=== PATIENT | male | born 1945 | race Caucasian/White ===

== ENCOUNTER 2018-08-10 16:59 | Inpatient (IN) ==
--- NOTE | 2018-08-10 17:32 | Emergency Department Note ---
Disposition Clinical Impression: Atrial fibrillation with rapid ventricular response Disposition: Admitted As Inpatient Condition: Good Time of Disposition: 19:27 Arrhythmia/Palpitations HPI - General Chief Complaint: ED Arrhythmia/Palpitations Stated Complaint: Afib Time Seen by Provider: 08/10/18 17:03 Source: patient Limitations: no limitations Nursing Notes Reviewed: Yes Vital Signs Reviewed: Yes - History of Present Illness HPI Narrative: 72-year-old male presents emergency department with concern for rapid heart rate. Patient was seen for a regular appointment for medication refill and heart rate was elevated at the urgent care. They sent him to the emergency department. Patient does not have any chest pain, pressure, tightness. He has not had any simple episodes or reporting any lightheadedness or dizziness. Patient has any fevers, cough, sputum production. Patient denies any history of gastrointestinal bleeding. Denies any hematuria, melena, hematochezia, hemoptysis. - Related Data Home Medications Medication Instructions Recorded Confirmed LORazepam [Ativan] 1 mg PO HS 08/10/18 08/10/18 Lisinopril-HCTZ 20-12.5 [Prinzide 2 tab PO QAM 08/10/18 08/10/18 20-12.5] Simvastatin [Zocor] 20 mg PO DAILY 08/10/18 08/10/18 amLODIPine [Norvasc] 5 mg PO DAILY 08/10/18 08/10/18 Allergies Allergy/AdvReac Type Severity Reaction Status Date / Time No Known Allergies Allergy Verified 08/10/18 17:18 All systems ED: reviewed and negative except as stated. Review of Systems: As Per HPI Constitutional: Denies: fever Cardiovascular: Denies: chest pain, palpitations Respiratory: Denies: cough, dyspnea, hemoptysis, sputum production Gastrointestinal: Denies: abdominal pain, nausea, vomiting Genitourinary: Denies: urgency, dysuria, hematuria Musculoskeletal: Denies: back pain, neck pain Integumentary: Denies: rash Neurological: Denies: headache Past Medical History - Past Medical History Medical history: Reports: hyperlipidemia, hypertension - Social History Smoking Status: Never smoker Alcohol use: Reports: none Drug use: Reports: none Physical Exam - General Limitations: no limitations General appearance: alert, in no apparent distress - Head Head exam: normocephalic - Eye Eye exam: Present: EOMI - ENT ENT exam: mucous membranes moist - Neck Neck exam: Present: trachea midline - Chest Chest inspection: Present: normal inspection, symmetric chest wall rise - Respiratory Respiratory exam: Present: normal lung sounds bilaterally. Absent: respiratory distress, accessory muscle use - Cardiovascular Cardiovascular exam: Present: tachycardia, irregular rhythm - Abdominal Exam Abdominal exam: Present: soft, Non-Tender. Absent: distention, guarding, rebound, rigidity - Extremities Exam Extremities exam: Present: normal capillary refill - Back Exam Back exam: Present: full ROM - Neurological Exam Neurological exam: Present: alert, oriented X3, CN II-XII intact - Psychiatric Psychiatric exam: Present: normal affect, normal mood - Skin Skin exam: Present: warm, dry, intact, normal color. Absent: rash Course Vital Signs Temperature 98.6 F 08/10/18 17:15 Pulse Rate 170 08/10/18 17:15 Respiratory Rate 16 08/10/18 17:15 Blood Pressure 151/107 08/10/18 17:15 O2 Sat by Pulse Oximetry 99 08/10/18 17:15 Temperature 98.6 F 08/10/18 17:15 Pulse Rate 107 08/10/18 20:00 Respiratory Rate 18 08/10/18 20:00 Blood Pressure 134/110 08/10/18 20:00 O2 Sat by Pulse Oximetry 96 08/10/18 20:00 Oxygen Delivery Oxygen Delivery Room Air Arrhythmia/Palpitations - [facility] Narrative Medical decision making narrative: 72-year-old male presents emergency department with concern for a heart rate in the 160s. Patient in atrial fibrillation with rapid ventricular response. Patient stable and not having any symptoms with that. Patient was given oral Cardizem as well as IV push. He was also started on Cardizem drip. Patient was started on heparin and given an aspirin as well. Troponin was negative, kidney function was normal, chest x-ray was normal per radiology. This was discussed with hospitalist who agreed to accept patient for admission. Family at bedside and agreed with the plan. Patient was symptomatically stable and not in acute distress at time of admission. Chest X-Ray 08/10/18 17:21 IMPRESSION: No acute cardiopulmonary process. D/ / Daquan Keys MD / Daquan Keys MD Interpreting Provider: Daquan Keys MD Vital Signs Temperature 98.6 F 08/10/18 17:15 Pulse Rate 170 08/10/18 17:15 Respiratory Rate 16 08/10/18 17:15 Blood Pressure 151/107 08/10/18 17:15 O2 Sat by Pulse Oximetry 99 08/10/18 17:15 Temperature 98.6 F 08/10/18 17:15 Pulse Rate 118 08/10/18 18:21 Respiratory Rate 16 08/10/18 17:15 Blood Pressure 121/66 08/10/18 18:21 O2 Sat by Pulse Oximetry 94 08/10/18 18:12 Oxygen Delivery Oxygen Delivery Room Air 1930 hrs.: Patient's heart rate is dipping down in the 90s and going up into the low teens. Still asymptomatic not having blood pressure changes. Were going to go ahead and start him on heparin once his PTT is back and admission. Hospitalist as accepted. Patient's in agreement with plan. Impression is atrial fibrillation new onset with rapid ventricular response controlled with Cardizem. - Lab Data Result diagrams: 08/10/18 17:29 08/10/18 17:29 Lab Results 08/10/18 08/10/18 08/10/18 Range/Units 17:29 17:29 17:29 WBC 10.5 (4.3-11.1) K/mcL RBC 5.03 (4.19-5.50) M/mcL Hgb 15.5 (12.9-16.9) g/dL Hct 45.9 (37.5-50.1) % MCV 91.3 (83.0-100.0) fL MCH 30.8 (28.0-33.3) pg MCHC 33.8 (31.6-35.5) g/dL RDW 16.2 H (11.5-14.5) % Plt Count 275 (140-400) K/mcL MPV 12.2 (9.4-12.4) fL Immature Gran % 0.3 (0-4) % Seg Neutrophils % 56.5 % Lymphocytes % 31.9 % Monocytes % 9.9 % Eosinophils % 1.1 % Basophils % 0.3 % Neutrophils # 5.9 (1.6-8.9) K/mcL Lymphocytes # 3.3 (0.6-4.6) K/mcL Monocytes # 1.0 (0.0-1.3) K/mcL Eosinophils # 0.1 (0.0-0.6) K/mcL Basophils # 0.0 (0.0-0.2) K/mcL PT (9.4-12.1) Seconds INR Heparin Anti-Xa, Unfract (0.30-0.70) IU/mL Sodium 142 (136-145) mEq/L Potassium 3.1 L (3.5-5.1) mEq/L Chloride 106 (98-107) mEq/L Carbon Dioxide 25 (23-29) mEq/L BUN 16 (8-23) mg/dL Creatinine 0.74 (0.70-1.30) mg/dL Est GFR ( Amer) > 60 (> 60) Est GFR (Non-Af Amer) > 60 (> 60) BUN/Creatinine Ratio 22 (6-26) Glucose 106 H (70-105) mg/dL Calculated Osmolality 296 (280-300) Calcium 10.0 (8.6-10.3) mg/dL Magnesium 1.9 (1.6-2.6) mg/dL Troponin I < 0.03 (< 0.04) ng/mL TSH 0.808 (0.340-5.600) mcIU/mL 08/10/18 Range/Units 19:11 WBC (4.3-11.1) K/mcL RBC (4.19-5.50) M/mcL Hgb (12.9-16.9) g/dL Hct (37.5-50.1) % MCV (83.0-100.0) fL MCH (28.0-33.3) pg MCHC (31.6-35.5) g/dL RDW (11.5-14.5) % Plt Count (140-400) K/mcL MPV (9.4-12.4) fL Immature Gran % (0-4) % Seg Neutrophils % % Lymphocytes % % Monocytes % % Eosinophils % % Basophils % % Neutrophils # (1.6-8.9) K/mcL Lymphocytes # (0.6-4.6) K/mcL Monocytes # (0.0-1.3) K/mcL Eosinophils # (0.0-0.6) K/mcL Basophils # (0.0-0.2) K/mcL PT 14.7 H (9.4-12.1) Seconds INR 1.3 Heparin Anti-Xa, Unfract 0.02 L (0.30-0.70) IU/mL Sodium (136-145) mEq/L Potassium (3.5-5.1) mEq/L Chloride (98-107) mEq/L Carbon Dioxide (23-29) mEq/L BUN (8-23) mg/dL Creatinine (0.70-1.30) mg/dL Est GFR ( Amer) (> 60) Est GFR (Non-Af Amer) (> 60) BUN/Creatinine Ratio (6-26) Glucose (70-105) mg/dL Calculated Osmolality (280-300) Calcium (8.6-10.3) mg/dL Magnesium (1.6-2.6) mg/dL Troponin I (< 0.04) ng/mL TSH (0.340-5.600) mcIU/mL Critical Care Time Critical Care Time: Yes Total Critical Care Time: 20 Attestation: Excluding any separately billable procedures. Attestation Statement - Attestation Attestation: This documentation is done with the assistance of Dragon dictation. Despite efforts made to ensure accuracy, there may be inaccuracies in seaport planning manager or spelling and typographical errors. I examined this patient and my medical decision-making was reviewed with the Resident Physician. I agree with the documented findings, disposition and treatment plan as described except to the extent set forth below. Patient seen and evaluated by Dr. Liriano and myself, I agree with his evaluation management plan, supervised the care the patient outstay. Patient presents today with rapid heart rate. He went to get a refill of his medications which she said was on Ativan. He has not been out of them. He is on hypertensive meds and has not been out of those. And the doctor noted that he had rapid heart rate. There looks like an SVT versus A. fib with rapid ventricular response. He has never had this before. He is asymptomatic denies chest pain shortness of breath and does not notice rapid heartbeat. We did Valsalva maneuvers which did not work or start him on Cardizem. Cardiac workup and he most likely will need admission. He is in agreement with plan.
--- NOTE | 2018-08-10 17:33 | Emergency Department Note ---
Disposition Clinical Impression: Atrial fibrillation with rapid ventricular response Disposition: Admitted As Inpatient Condition: Good General Adult HPI - General Chief complaint: ED Arrhythmia/Palpitations Stated complaint: Afib Time Seen by Provider: 08/10/18 17:03 Source: patient Mode of arrival: ambulatory Limitations: no limitations Vital Signs Reviewed: Yes - History of Present Illness HPI Narrative: The patient is a 72 year old male with a history of HTN, HLD, that presents with elevated heart rate. Per patient's report, he was at his PCP office today for a general check up when his heart rate was found to be in the 160s-170s and was sent her to the ED to be evaluated. Patient denies any fever, chills, headache, dizziness, chest pain, palpitations, shortness of breath, abdominal pain, nausea, vomiting, changes in bowel habits, dysuria, hematuria, numbness, tingling, weakness, and any other associated symptoms. Patient denies any prior similar episodes. The history, physical exam, and medical decision making was performed by the medical student either while I was physically present and actively involved or I personally re-performed the exam and medical decision making. I have verified the accuracy of the medical student's documentation with regards to the history, physical exam findings, and medical decision making. Pain Scale: 0 - Related Data Home Medications Medication Instructions Recorded Confirmed LORazepam [Ativan] 1 mg PO HS 08/10/18 08/10/18 Lisinopril-HCTZ 20-12.5 [Prinzide 2 tab PO QAM 08/10/18 08/10/18 20-12.5] Simvastatin [Zocor] 20 mg PO DAILY 08/10/18 08/10/18 amLODIPine [Norvasc] 5 mg PO DAILY 08/10/18 08/10/18 Allergies Allergy/AdvReac Type Severity Reaction Status Date / Time No Known Allergies Allergy Verified 08/10/18 17:18 All systems ED: reviewed and negative except as stated. Constitutional: Denies: fever, chills Eyes: Denies: eye pain, vision change ENT ED: Denies: throat pain, congestion Cardiovascular: Denies: chest pain, palpitations, dyspnea on exertion, syncope Respiratory: Denies: cough, dyspnea Gastrointestinal: Denies: abdominal pain, nausea, vomiting, diarrhea, constipation, melena, hematochezia Genitourinary: Denies: urgency, dysuria, frequency, hematuria Musculoskeletal: Denies: back pain, neck pain Integumentary: Denies: rash, lesions Neurological: Denies: headache, weakness, numbness, paresthesias Past Medical History - Past Medical History Source: patient Medical history: Reports: hyperlipidemia, hypertension - Social History Smoking Status: Never smoker Alcohol use: Reports: none Drug use: Reports: none Physical Exam - General Limitations: no limitations General appearance: alert, in no apparent distress - Head Head exam: atraumatic, normocephalic - Eye Eye exam: Present: normal appearance. Absent: scleral icterus, conjunctival injection - ENT ENT exam: mucous membranes moist, normal external ear exam - Neck Neck exam: Present: normal inspection, full ROM, trachea midline - Chest Chest inspection: Present: normal inspection, symmetric chest wall rise - Respiratory Respiratory exam: Present: normal lung sounds bilaterally. Absent: respiratory distress, wheezes - Cardiovascular Cardiovascular exam: Present: normal rhythm, tachycardia, normal heart sounds. Absent: systolic murmur, diastolic murmur, rubs, gallop - Expanded Cardiovascular Exam Peripheral pulses: 1+: radial (R), radial (L) - Extremities Exam Extremities exam: Present: normal inspection, full ROM. Absent: pedal edema - Back Exam Back exam: Present: normal inspection, full ROM - Neurological Exam Neurological exam: Present: alert, oriented X3 - Psychiatric Psychiatric exam: Present: normal affect, normal mood - Skin Skin exam: Present: warm, dry, intact, normal color. Absent: rash, cyanosis, diaphoresis Course Vital Signs Temperature 98.6 F 08/10/18 17:15 Pulse Rate 170 08/10/18 17:15 Respiratory Rate 16 08/10/18 17:15 Blood Pressure 151/107 08/10/18 17:15 O2 Sat by Pulse Oximetry 99 08/10/18 17:15 Temperature 98.6 F 08/10/18 17:15 Pulse Rate 118 08/10/18 18:21 Respiratory Rate 16 08/10/18 17:15 Blood Pressure 121/66 08/10/18 18:21 O2 Sat by Pulse Oximetry 94 08/10/18 18:12 Oxygen Delivery Oxygen Delivery Room Air Medical Decision Making - Lab Data Result diagrams: 08/10/18 17:29 08/10/18 17:29 Lab Results 08/10/18 08/10/18 08/10/18 Range/Units 17:29 17:29 17:29 WBC 10.5 (4.3-11.1) K/mcL RBC 5.03 (4.19-5.50) M/mcL Hgb 15.5 (12.9-16.9) g/dL Hct 45.9 (37.5-50.1) % MCV 91.3 (83.0-100.0) fL MCH 30.8 (28.0-33.3) pg MCHC 33.8 (31.6-35.5) g/dL RDW 16.2 H (11.5-14.5) % Plt Count 275 (140-400) K/mcL MPV 12.2 (9.4-12.4) fL Immature Gran % 0.3 (0-4) % Seg Neutrophils % 56.5 % Lymphocytes % 31.9 % Monocytes % 9.9 % Eosinophils % 1.1 % Basophils % 0.3 % Neutrophils # 5.9 (1.6-8.9) K/mcL Lymphocytes # 3.3 (0.6-4.6) K/mcL Monocytes # 1.0 (0.0-1.3) K/mcL Eosinophils # 0.1 (0.0-0.6) K/mcL Basophils # 0.0 (0.0-0.2) K/mcL Sodium 142 (136-145) mEq/L Potassium 3.1 L (3.5-5.1) mEq/L Chloride 106 (98-107) mEq/L Carbon Dioxide 25 (23-29) mEq/L BUN 16 (8-23) mg/dL Creatinine 0.74 (0.70-1.30) mg/dL Est GFR ( Amer) > 60 (> 60) Est GFR (Non-Af Amer) > 60 (> 60) BUN/Creatinine Ratio 22 (6-26) Glucose 106 H (70-105) mg/dL Calculated Osmolality 296 (280-300) Calcium 10.0 (8.6-10.3) mg/dL Magnesium 1.9 (1.6-2.6) mg/dL Troponin I < 0.03 (< 0.04) ng/mL TSH 0.808 (0.340-5.600) mcIU/mL
[2018-08-10 17:44] LABS: Basophils % 0.3 %; Eosinophils # 0.1 K/mcL (0.0-0.6); Eosinophils % 1.1 %; Hematocrit 45.9 % (37.5-50.1); Hemoglobin 15.5 g/dL (12.9-16.9); Immature Granulocytes % 0.3 % (0-4); Lymphocytes # 3.3 K/mcL (0.6-4.6); Lymphocytes % 31.9 %; Mean Corpuscular HGB Conc 33.8 g/dL (31.6-35.5); Mean Corpuscular Hemoglobin 30.8 pg (28.0-33.3); Mean Corpuscular Volume 91.3 fL (83.0-100.0); Mean Platelet Volume 12.2 fL (9.4-12.4); Monocytes % 9.9 %; Neutrophils # 5.9 K/mcL (1.6-8.9); Platelet Count 275 K/mcL (140-400); Red Blood Count 5.03 M/mcL (4.19-5.50); Red Cell Distribution Width 16.2 % (11.5-14.5); Segmented Neutrophils % 56.5 %
[2018-08-10 18:13] LABS: Troponin I < 0.03 ng/mL (< 0.04)
[2018-08-10 18:18] LABS: BUN/Creatinine Ratio 22 (6-26); Blood Urea Nitrogen 16 mg/dL (8-23); Carbon Dioxide 25 mEq/L (23-29); Chloride 106 mEq/L (98-107); Glucose 106 mg/dL (70-105); Osmolality,Calculated 296 (280-300); Potassium 3.1 mEq/L (3.5-5.1); Sodium 142 mEq/L (136-145); eGFR For Non-African Americans > 60 (> 60)
[2018-08-10 18:25] LABS: Thyroid Stimulating Hormone 0.808 mcIU/mL (0.340-5.600)
[2018-08-10] MEDS ORDERED: *HR* Heparin 5,000 UNIT/ML VIAL IVP PRN ×2 (18:54)
[2018-08-10] MEDS ORDERED: *HR* Heparin 5,000 UNIT/ML VIAL IVP ONE (18:54)
[2018-08-10 19:44] LABS: Heparin anti-factor XA UFH 0.02 IU/mL (0.30-0.70)
[2018-08-10 19:45] LABS: INR 1.3; Prothrombin Time 14.7 Seconds (9.4-12.1)
[2018-08-10] MEDS: Heparin 25,000 UNIT/500 ML D5W 25,000 UNIT/500 ML BAG IVC SCH (20:18)
[2018-08-10] MEDS ORDERED: Naloxone 0.4 MG/ML INJ IVP PRN (21:00)
--- NOTE | 2018-08-10 21:33 | Internal Med History&Physical ---
Addendum entered and electronically signed by Adrian Patricia MD 08/11/18 21:14: I saw and evaluated the patient. I reviewed the residents note, performed my own physical examination and agree with findings and plan as documented in the residents note. Patient seen and examined on 08/11/18. Patient presented with new onset atrial fibrillation. Started on diltiazem in ER, as well as heparin drip. He denies complaints, no chest pain. Will continue to titrate for control. Cardiology consult in the AM. Original Note: Date of Encounter: 08/10/18 Time of Encounter: 21:00 Internal Medicine - H&P: HPI Chief complaint: rapid heart rate History of present illness: Mr. Sanchez is a 72 year old male with PMH of hypertension and hyperlipidemia presents to the emergency department for rapid heart rate discovered while at a routine appointment with his PCP. While at his PCP appointment his heart rate was reported to be 160s-170s bpm; he received an EKG showing afib with RVR and was sent to the ED. the patient has no complaints, states he feels perfectly fine. Patient reports was replacing windows on his home yesterday and although he admits it was hard work he had no issues during this project or afterwards. He denies fevers, chills, chest pain or pressure, sensation of heart racing, heart palpitations, dyspnea, lightheadedness, headache, diaphoresis, abdominal pain, nausea, vomiting, change in bowel movements, or difficulty urinating. Patient denies any personal history of TN, but states his father of an TN at age 60. The patient has no history of tobacco use, states he was exposed to a lot of secondhand smoke as a child. He has 1 or 2 beers on rare occasions. Denies marijuana other drug use. ED course: On arrival he was asymptomatic, afebrile, HR 170, RR 16, BP 151/107, and SPO2 99%. His lab work was notable for potassium 3.1, negative troponin, and TSH within normal limits. CXR negative for any acute cardiopulmonary processes. EKG showed Afib with RVR, HR 120 bpm, axis. Potassium replaced with 40 mEq KCl orally. For his Afib with RVR he was given diltiazem 60 mg PO, diltiazem 20 mg IVP, placed on a diltiazem drip, and started on a heparin drip. He is admitted to the hospitalist service for further evaluation and care of new onset Afib with RVR. Past Med Surg Social Fam HX - Past Medical History Medical history: hyperlipidemia, hypertension - Social History Smoking Status: Never smoker Alcohol use: none Drug use: none Internal Medicine - H&P: Meds LORazepam [Ativan] 1 mg PO HS 08/10/18 [History] Lisinopril-HCTZ 20-12.5 [Prinzide 20-12.5] 2 tab PO QAM 08/10/18 [History] Simvastatin [Zocor] 20 mg PO DAILY 08/10/18 [History] amLODIPine [Norvasc] 5 mg PO DAILY 08/10/18 [History] Allergy/AdvReac Type Severity Reaction Status Date / Time No Known Allergies Allergy Verified 08/10/18 17:18 All Systems PM: A 10-system review of systems was performed and is negative for pertinent findings except as documented above in the HPI. - Constitutional Constitutional: as per HPI - Cardiovascular Cardiovascular ROS IM: as per HPI, edema (bilateral, lower extremity, chronic) - Respiratory Respiratory: as per HPI - Gastrointestinal Gastrointestinal: as per HPI - Genitourinary Genitourinary ROS male: as per HPI - Neurological Neurological ROS: as per HPI - Constitutional Vitals: Temp Pulse Resp BP Pulse Ox 98.0 F 148 18 136/91 96 08/10/18 20:57 08/10/18 20:57 08/10/18 20:57 08/10/18 20:57 08/10/18 20:57 Exam: General: vital signs noted, no acute distress, non-toxic appearance, AAO x3 Head: normocephalic, atraumatic Eyes: EOMI, PERRL, sclera anicteric ENT: moist/dry mucous membranes Neck: supple, trachea midline, no lymphadenopathy Cardio: tachycardic; no murmurs, gallops, rubs; + S1/S2 Chest: symmetric chest rise Pulm: CTAB; no wheezes, rhonchi, or rales; no respiratory distress Abd: soft, nontender, nondistended, normal bowel sounds Neuro: CN II-XII grossly intact; no focal deficits, speech deficit, facial droop, moves all extremities spontaneously; mentation intact Ext: bilateral lower extremity edema L > R with 2+ pitting edema; 2+/4 radial pulses equal bilaterally, no gross deformities Psych: normal mood and affect, cooperative, answers questions appropriately, doesnt appear anxious or agitated Skin: warm, dry, intact Internal Med - H&P Results - Labs CBC & Chem 7: 08/11/18 01:48 08/11/18 01:48 - Assessment and plan (1) Atrial fibrillation with rapid ventricular response Current Visit: Yes Status: Acute Assessment and plan: New onset, uncertain etiology HR prior to arrival reportedly 160s to 170s bpm EKG shows Afib with RVR, to ischemic changes identified Troponin negative CXR shows no acute cardiopulmonary processes - Continuous manager cardiac - Continue diltiazem gtt - Continue heparin gtt - Hold amlodipine morning dose - Echocardiogram ordered - Cardiology consult (2) Hypertension Current Visit: Yes Status: Chronic Assessment and plan: Home meds include amlodipine and lisinopril-HCTZ - Hold amlodipine morning dose - Continue lisinopril-HCTZ Qualifiers: Hypertension type: essential hypertension Qualified Code(s): I10 - Essential (primary) hypertension (3) Bilateral lower extremity edema Current Visit: Yes Status: Chronic Assessment and plan: Chronic, stable May be d/t amlodipine use - No lasix at this time d/t his hypokalemia - Consider replacing amlodipine with different anti-hypertensive (4) Hypokalemia Current Visit: Yes Status: Acute Assessment and plan: Potassium on admission 3.1 Magnesium 1.9 Received 40 mEq KCl PO and 2 gm magnesium IV in emergency department Do not give lasix for BLE edema at this time - Give additional 40 mEq KCl now - Recheck metabolic panel in morning - If potassium improved on morning metabolic panel, consider lasix for BLE edema (5) Hyperlipidemia Current Visit: Yes Status: Chronic Assessment and plan: Continue home med simvastatin - Check lipid panel to help determine ASCVD risk Qualifiers: Hyperlipidemia type: mixed hyperlipidemia Qualified Code(s): E78.2 - Mixed hyperlipidemia (6) Prediabetes Current Visit: Yes Status: Chronic Assessment and plan: Per review of [facility] records, HgbA1c ordered but never completed - HgbA1c ordered to help determine ASCVD risk (7) DVT prophylaxis Current Visit: Yes Status: Acute Assessment and plan: Heparin gtt - Time Spent With Patient Total time spent is greater than 50% in coordination of care (as documented) at patient's floor/unit and/or counseling patient:
[2018-08-11] MEDS ORDERED: *HR* LORazepam 0.5 MG TABLET ONE (04:41)
[2018-08-11] MEDS ORDERED: amLODIPine 5 MG TABLET PO SCH (09:00)
[2018-08-11 10:48] LABS: Heparin anti-factor XA UFH 0.51 IU/mL (0.30-0.70)
[2018-08-11 11:41] LABS: Basophils # 0.1 K/mcL (0.0-0.2); Basophils % 0.4 %; Eosinophils # 0.1 K/mcL (0.0-0.6); Hematocrit 40.1 % (37.5-50.1); Hemoglobin 13.6 g/dL (12.9-16.9); Immature Granulocytes % 0.6 % (0-4); Lymphocytes # 3.9 K/mcL (0.6-4.6); Mean Corpuscular HGB Conc 33.9 g/dL (31.6-35.5); Mean Corpuscular Hemoglobin 31.3 pg (28.0-33.3); Mean Corpuscular Volume 92.2 fL (83.0-100.0); Mean Platelet Volume 13.1 fL (9.4-12.4); Monocytes # 1.3 K/mcL (0.0-1.3); Monocytes % 10.1 %; Neutrophils # 7.2 K/mcL (1.6-8.9); Platelet Count 241 K/mcL (140-400); Red Blood Count 4.35 M/mcL (4.19-5.50); Red Cell Distribution Width 16.7 % (11.5-14.5); Segmented Neutrophils % 56.9 %
[2018-08-11] MEDS ORDERED: Melatonin 3 MG TABLET PO PRN (11:59)
[2018-08-11] MEDS: Lisinopril-HCTZ 20-12.5mg TABLET PO SCH (12:11)
[2018-08-11 12:23] LABS: BUN/Creatinine Ratio 18 (6-26); Blood Urea Nitrogen 14 mg/dL (8-23); Calcium 9.4 mg/dL (8.6-10.3); Carbon Dioxide 22 mEq/L (23-29); Chloride 108 mEq/L (98-107); Chol/HDL Ratio 2.7 (0-4.9); Glucose 181 mg/dL (70-105); Osmolality,Calculated 297 (280-300); Potassium 3.2 mEq/L (3.5-5.1); Sodium 141 mEq/L (136-145); eGFR For Non-African Americans > 60 (> 60)
[2018-08-11 12:39] LABS: INR 1.4; Prothrombin Time 15.9 Seconds (9.4-12.1)
--- NOTE | 2018-08-11 12:46 | Internal Med Progress Note ---
Hospitalist Progress Note - Encounter Date of Encounter: 08/11/18 Time of Encounter: 09:00 - Subjective Interval History: 72 M who is admitted and being managed for afib with RVR Currently on diltiazem and heparin infusions,asymptomatic ECHO and Cardio eval pending Labs reviewed: Potassium and Mag replaced - Exam Vitals: Temp Pulse Resp BP Pulse Ox 99.0 F 119 16 121/56 95 08/10/18 23:35 08/10/18 23:35 08/10/18 23:35 08/10/18 23:35 08/11/18 00:04 Exam: GEN: Patient is alert, oriented, no acute distress Head: atraumatic, normocephalic Eye: normal appearance, PERRL, no scleral icterus, no conjunctival injection ENT: mucous membranes moist, normal external ear exam Neck: normal inspection, trachea midline, full ROM, NO JVD Respiratory: CTAB, no added sounds Cardiovascular: S1, S2, irregular rate, tachy, HR 100-110, no m/g/r Abdomen: Soft, not tender, no palpably enlarged organs, BS present in all quadrants MSK: Spontaneously moving all extremities. no edema, no calf tenderness Skin: warm, dry, intact, no rash Neuro: AAOX3, moves all extremities, no focal deficits Psych: Patient's affect is normal - Assessment and Plan (1) Atrial fibrillation with rapid ventricular response Current Visit: Yes Status: Acute Assessment and Plan: New onset, uncertain etiology HR prior to arrival reportedly 160s to 170s bpm EKG shows Afib with RVR, to ischemic changes identified Troponin negative TSH WNL CXR shows no acute cardiopulmonary processes Follow ECHO reports Start po metoprolol wean off IV cardizem, cardio eval pending CHADs score of 1 for HTN Continue ASA only, if ECHO shows no CHF (2) DVT prophylaxis Current Visit: Yes Status: Acute Assessment and Plan: Heparin gtt (3) Hyperlipidemia Current Visit: Yes Status: Chronic Assessment and Plan: Continue home med simvastatin (4) Hypertension Current Visit: Yes Status: Chronic Assessment and Plan: Continue Lisinopril-HCTZ Monitor BP closely (5) Bilateral lower extremity edema Current Visit: Yes Status: Acute Assessment and Plan: Chronic, stable May be d/t amlodipine use Follow ECHO report (6) Hypokalemia Current Visit: Yes Status: Acute Assessment and Plan: Replaced po, rpt with mrn labs Mag replaced (7) Prediabetes Current Visit: Yes Status: Chronic Assessment and Plan: Per review of [facility] records Follow A1C - Time Spent with Patient Total time spent is greater than 50% in coordination of care (as documented) at patient's floor/unit and/or counseling patient: Plan of Care Discussed with: patient Internal Medicine: Result - Labs CBC & Chem 7: 08/11/18 01:48 08/11/18 01:48 Labs: Short CBC 08/10/18 08/11/18 Range/Units 17:29 01:48 WBC 10.5 12.6 H (4.3-11.1) K/mcL Hgb 15.5 13.6 D (12.9-16.9) g/dL Hct 45.9 40.1 (37.5-50.1) % Plt Count 275 241 (140-400) K/mcL Neutrophils # 5.9 7.2 (1.6-8.9) K/mcL BMP 08/10/18 08/11/18 17:29 01:48 Sodium 142 141 Potassium 3.1 L 3.2 L Chloride 106 108 H Carbon Dioxide 25 22 L BUN 16 14 Creatinine 0.74 0.78 Glucose 106 H 181 H Calcium 10.0 9.4 Cardiac Enzymes 08/10/18 Range/Units 17:29 Troponin I < 0.03 (< 0.04) ng/mL - ABG Interpretation ABG results: PT/INR, D-dimer PT 15.9 Seconds (9.4-12.1) H 08/11/18 01:48 - Impressions Impressions Chest X-Ray 08/10/18 17:21 IMPRESSION: No acute cardiopulmonary process. D/ / Daquan Keys MD / Daquan Keys MD Interpreting Provider: Daquan Keys MD Consult Discharge Plan - Plan Referrals: Sushma Han, SE[employer]ER [Primary Care Provider] - (3) Hyperlipidemia Qualifiers: Hyperlipidemia type: mixed hyperlipidemia Qualified Code(s): E78.2 - Mixed hyperlipidemia (4) Hypertension Qualifiers: Hypertension type: essential hypertension Qualified Code(s): I10 - Essential (primary) hypertension
--- NOTE | 2018-08-11 13:07 | Cardiology Consult Note ---
<Jacque Mathew M - Last Filed: 08/11/18 15:45> Date of Encounter: 08/11/18 Time of Encounter: 12:45 Assessment and Plan (1) Atrial fibrillation with rapid ventricular response Current Visit: Yes Status: Acute New onset. Unknown duration. Heart rate ranging form 110-140s. Asymptomatic. EKG with Afib with RVR, no signs of acute ischemia. Torponin <0.03. TSH WNL. Plan for rate control. Continue cardizem drip until patient is better rate controlled. Try to wean tomorrow. Started on metoprolol 25mg PO BID, continue. Await echocardiogram results. CHADsVASC 2 (age and hypertension). Recommend anticoagulation. Continue heparin for now and likely switch to oral anticoagulant on discharge. (2) Hypertension Current Visit: Yes Status: Chronic Blood pressures controlled. Continue lisinopril-HCTZ Qualifiers: Hypertension type: essential hypertension Qualified Code(s): I10 - Essential (primary) hypertension (3) Bilateral lower extremity edema Current Visit: Yes Status: Chronic Chronic per patient. Await echo results. Resume home medications on discharge. (4) Hypokalemia Current Visit: Yes Status: Acute Replace. Management per medicine team. (5) Hyperlipidemia Current Visit: Yes Status: Chronic Continue statin. Qualifiers: Hyperlipidemia type: mixed hyperlipidemia Qualified Code(s): E78.2 - Mixed hyperlipidemia Discussion w patient/family: The assessment and plan as outlined above was discussed with the patient and/or family members who expressed understanding and agreement. All questions were answered. Thank you for involving us in the care of your patient. Please call with any questions. History of Present Illness Consult date: 08/10/18 Requesting physician: Carlyn Douglas Consult reason: New Afib with RVR Chief complaint: high heart rate History of present illness: Mr. Sanchez is a 72 year old male with past medical history including hypertension and hyperlipidemia who presents with a chief complaint of high heart rate. Patient states he followed up with his PCP yesterday afternoon for a regular scheduled appointment. He states the nurse documented the heart rate as 82. When the physician did her physical exam she noted his heart rate to be fast. An ekg was obtained and patient was noted to be in atrial fibrillation with heart rate 160s. Patient denies a history of atrial fibrillation. He denies chest pain, palpitations, skipped heart beats, fatigue, shortness of breath, nausea, history of thyroid disease, family history of atrial fibrillation, history of smoking, alcohol, or illicit drug use. Patient does note he chronically has lower ex tremity edema but no new swelling. PCP sent him to the ER for further management. He received Cardizem PO, IV and started on a drip. Heparin and aspirin was also started. Troponin <0.03. CXR was obtained and negative for acute process or cardiomegaly. Overnight, patient's heart rate has improved to 110-130s on diltiazem drip. Patient seen and examined today. Denies any new complaints. Denies chest pain, palpitations, shortness of breath, lightheadedness. He states he has never had a stress test, echocardiogram, or cardiac catheterization in the past. Past Med Surg Social Fam HX - Past Medical History Medical history: hyperlipidemia, hypertension Psychiatric history: no psych history - Past Surgical History Surgical History: splenectomy Additional surgical history: 1980 Spleen completely removed - Social History Smoking Status: Never smoker Smokeless Tobacco Status: No Alcohol use: none Drug use: none - Family History Brother Age at : 64 Cause of : Lung cancer Hx Family Respiratory Disorders: Yes Hx Family Cancer: Yes (Lung cancer) Hx Family Psychosocial Disorders: Yes (alcoholism) Father Living Status: Age at : 59 Cause of : "Massive heart attack" Hx Family Cardiac Disorders: Yes Mother Age at : 59 Cause of : "Brain cancer" Hx Family Cancer: Yes ("Brain cancer") Hx Family Neurologic Disorders: Yes Medications and Allergies LORazepam [Ativan] 1 mg PO HS 08/10/18 [History] RX: Lisinopril-HCTZ 20-12.5 [Prinzide 20-12.5] 2 tab PO QAM 08/10/18 [History] Simvastatin [Zocor] 20 mg PO DAILY 08/10/18 [History] amLODIPine [Norvasc] 5 mg PO DAILY 08/10/18 [History] Allergy/AdvReac Type Severity Reaction Status Date / Time No Known Allergies Allergy Verified 08/10/18 17:18 All Systems Review: The remainder of the systems were reviewed and are negative - Constitutional Constitutional: no fatigue, no fever(s), no headache(s), no lethargy, no weakn ess - EENT Eyes: no blurred vision, no loss of vision Nose, mouth and throat: no dysphagia, no sore throat - Cardiovascular Cardiovascular: irregular heart rhythm, leg edema, rapid heart rate, no chest pain at rest, no chest pain with exertion, no dyspnea on exertion, no lightheadedness, no palpitations - Respiratory Respiratory: no cough, no dyspnea - Gastrointestinal Gastrointestinal: no abdominal pain - Genitourinary Genitourinary: no dysuria - Musculoskeletal Musculoskeletal: no muscle weakness - Integumentary Integumentary: no rash - Neurological Neurological: no dizziness, no numbness, no tingling - Hematological/Lymphatic Hematologic/Lymphatic: no easy bleeding Physical Examination General: Conversant, No Apparent Distress HEENT: Atraumatic, Normocephaly, Mucus Membranes Moist Neck: No JVD Cardiac: No Murmur, Other (irregular rate and rhythm.) Lungs: Normal Breath Sounds, No Wheeze, Rales, Rhonchi Neuro: Alert and responsive, No focal deficits noted Abdomen: Soft, Non-Tender Skin: No rashes noted on visualized skin Musculoskeletal: No Chest Wall Tenderness Extremities: Other (1+ pitting edema bilateral lower extremities up to knee.) Results 08/11/18 01:48 08/11/18 01:48 Lab Results 08/10/18 08/10/18 08/10/18 17:29 17:29 17:29 WBC 10.5 Hgb 15.5 Hct 45.9 Plt Count 275 INR APTT Sodium 142 Potassium 3.1 L Chloride 106 Carbon Dioxide 25 BUN 16 Creatinine 0.74 Glucose 106 H Calcium 10.0 Magnesium 1.9 Troponin I < 0.03 TSH 0.808 08/10/18 08/11/18 08/11/18 19:11 01:48 01:48 WBC 12.6 H Hgb 13.6 D Hct 40.1 Plt Count 241 INR 1.3 APTT Sodium 141 Potassium 3.2 L Chloride 108 H Carbon Dioxide 22 L BUN 14 Creatinine 0.78 Glucose 181 H Calcium 9.4 Magnesium Troponin I TSH 08/11/18 01:48 WBC Hgb Hct Plt Count INR 1.4 APTT TNP Sodium Potassium Chloride Carbon Dioxide BUN Creatinine Glucose Calcium Magnesium Troponin I TSH - Imaging and Cardiology Chest Xray: report reviewed Echo: pending Consult Discharge Plan - Plan Referrals: Sushma Han, SHELL WORKER [Primary Care Provider] - <Fam Banda - Last Filed: 08/12/18 09:33> - Attending Attestation I examined this patient and my medical decision-making was reviewed with the [facility] Physician. I agree with the documented findings, disposition and treatment plan as described except to the extent set forth below. AF of unknown duration. Asymptomatic. Rate control and anticoagulation acutely, consider cardioversion down the road. Assessment and Plan Discussion w patient/family: The assessment and plan as outlined above was discussed with the patient and/or family members who expressed understanding and agreement. All questions were answered. Thank you for involving us in the care of your patient. Please call w ith any questions. History of Present Illness History of present illness: Mr. Sanchez is a 72 year old male All Systems Review: The remainder of the systems were reviewed and are negative Physical Examination Vital Signs, Last 4 Hours Temp Pulse Resp BP Pulse Ox 08/12/18 07:26 97.9 F 99 16 103/78 91 Results 08/12/18 04:03 08/12/18 04:03 Lab Results 08/11/18 08/11/18 08/11/18 01:48 01:48 01:48 WBC 12.6 H Hgb 13.6 D Hct 40.1 Plt Count 241 INR 1.4 APTT TNP Sodium 141 Potassium 3.2 L Chloride 108 H Carbon Dioxide 22 L BUN 14 Creatinine 0.78 Glucose 181 H Calcium 9.4 Magnesium 08/12/18 08/12/18 04:03 04:03 WBC 12.8 H Hgb 13.2 Hct 39.2 Plt Count 235 INR APTT Sodium 140 Potassium 3.5 Chloride 105 Carbon Dioxide 27 BUN 21 Creatinine 1.11 Glucose 140 H Calcium 8.7 Magnesium 2.2
--- NOTE | 2018-08-11 13:33 | Electrocardiograph Report ---
[place] [id number] Test Date: 2018-08-10 Pat Name: Kulwant Sanchez Department: EXAMC1 Room: 2A24 Gender: M Optical Effects Line Up Person: : 1945 Requested By: Aman Boyd Order Number: [id number] Reading MD: Alicia Husain Measurements Intervals [place] Rate: 120 P: [place]: QRS: -26 QRSD: 104 T: 104 QT: 384 QTc: 543 Interpretive Statements Atrial fibrillation Borderline left axis deviation Abnormal R-wave progression, early transition Borderline repolarization abnormality Electronically Signed On 08-11-2018 13:31:22 EDT by Alicia Husain
--- NOTE | 2018-08-11 13:47 | Electrocardiograph Report ---
[address] [address] Test Date: 2018-08-10 Pat Name: Kulwant Sanchez Department: EXAMC1 Room: 2A24 Gender: M Digestion Operator: : 1945 Requested By: Wilmer Franco Order Number: [id number] Reading MD: Alicia Husain Measurements Intervals [place] Rate: 170 P: -75 IN: 101 QRS: -28 QRSD: 103 T: 91 QT: 311 QTc: 523 Interpretive Statements Supraventricular tachycardia Borderline left axis deviation Abnormal R-wave progression, early transition Repolarization abnormality, prob rate related Electronically Signed On 08-11-2018 13:45:25 EDT by Alicia Husain
[2018-08-11] MEDS ORDERED: *HR* LORazepam 0.5 MG TABLET PO ONE (14:10)
[2018-08-11] MEDS ORDERED: Lisinopril-HCTZ 20-12.5mg TABLET PO ONE (14:10)
[2018-08-11 14:21] LABS: Estimated Average Glucose 143 mg/dl; Hemoglobin A1C 6.6 %
[2018-08-11] MEDS ORDERED: Perflutren Lipid Microsphere 1.3 ML in 0.9 % Sodium Chloride 8.7 ML IVP ONE (16:22)
[2018-08-11] MEDS: Heparin 25,000 UNIT/500 ML D5W 25,000 UNIT/500 ML BAG IVC SCH (17:04)
[2018-08-11] MEDS ORDERED: Ondansetron 4 MG/2 ML VIAL IVP PRN (19:41)
[2018-08-11] MEDS ORDERED: *HR* LORazepam 1 MG TABLET PO SCH (21:00)
[2018-08-12 04:35] LABS: Basophils % 0.1 %; Eosinophils % 0.1 %; Hematocrit 39.2 % (37.5-50.1); Immature Granulocytes % 0.3 % (0-4); Lymphocytes # 3.8 K/mcL (0.6-4.6); Lymphocytes % 29.6 %; Mean Corpuscular HGB Conc 33.7 g/dL (31.6-35.5); Mean Corpuscular Hemoglobin 30.9 pg (28.0-33.3); Mean Corpuscular Volume 91.8 fL (83.0-100.0); Mean Platelet Volume 12.6 fL (9.4-12.4); Neutrophils # 7.9 K/mcL (1.6-8.9); Platelet Count 235 K/mcL (140-400); Red Blood Count 4.27 M/mcL (4.19-5.50); Red Cell Distribution Width 16.5 % (11.5-14.5); Segmented Neutrophils % 61.9 %
[2018-08-12 04:39] LABS: Hemoglobin 13.2 g/dL (12.9-16.9)
[2018-08-12 04:55] LABS: BUN/Creatinine Ratio 19 (6-26); Blood Urea Nitrogen 21 mg/dL (8-23); Calcium 8.7 mg/dL (8.6-10.3); Carbon Dioxide 27 mEq/L (23-29); Chloride 105 mEq/L (98-107); Glucose 140 mg/dL (70-105); Magnesium 2.2 mg/dL (1.6-2.6); Osmolality,Calculated 295 (280-300); Potassium 3.5 mEq/L (3.5-5.1); Sodium 140 mEq/L (136-145); eGFR For Non-African Americans > 60 (> 60)
--- NOTE | 2018-08-12 08:57 | Internal Med Progress Note ---
Hospitalist Progress Note - Encounter Date of Encounter: 08/12/18 Time of Encounter: 08:55 - Subjective Interval History: 72 M who is admitted and being managed for afib with RVR He has no new complains and was never symptomatic, except for chronic pedal edema ECHO from 08/11 noted for EF 45%, multiple WMA as well as biatrial dilatation and moderate MR/MA. I assume he will be going for cath and has placed NPO HR remains uncontrolled, off cardizem drip, will increase metoprolol - Exam Vitals: Temp Pulse Resp BP Pulse Ox 97.9 F 99 16 103/78 91 08/12/18 07:26 08/12/18 07:26 08/12/18 07:26 08/12/18 07:26 08/12/18 07:26 Exam: GEN: Patient is alert, oriented, no acute distress Head: atraumatic, normocephalic Eye: normal appearance, PERRL, no scleral icterus, no conjunctival injection ENT: mucous membranes moist, normal external ear exam Neck: normal inspection, trachea midline, full ROM, NO JVD Respiratory: CTAB, no added sounds Cardiovascular: S1, S2, irregular rate, tachy, HR 100-110, no m/g/r Abdomen: Soft, not tender, no palpably enlarged organs, BS present in all quadrants MSK: Spontaneously moving all extremities.pedal edema, no calf tenderness Skin: warm, dry, intact, no rash Neuro: AAOX3, moves all extremities, no focal deficits Psych: Patient's affect is normal - Assessment and Plan (1) Atrial fibrillation with rapid ventricular response Current Visit: Yes Status: Acute Assessment and Plan: New onset, uncertain etiology HR prior to arrival reportedly 160s to 170s bpm EKG shows Afib with RVR, to ischemic changes identified Troponin negative TSH WNL CXR shows no acute cardiopulmonary processes ECHo shows multiple WMA and EF 45%-Card follow up pending Continue po metoprolol, increased to 50bid Continue heparin with goal to switch to po med a.m Continue other care, Chem WNL (2) DVT prophylaxis Current Visit: Yes Status: Acute Assessment and Plan: Heparin gtt (3) Hyperlipidemia Current Visit: Yes Status: Chronic Assessment and Plan: Continue home med simvastatin isk (4) Hypertension Current Visit: Yes Status: Chronic Assessment and Plan: Continue BB and Lisinopril-HCTZ (5) Bilateral lower extremity edema Current Visit: Yes Status: Chronic Assessment and Plan: Chronic, stable Likley due to CHF, patient is on diuretics (6) Hypokalemia Current Visit: Yes Status: Acute Assessment and Plan: resolved , now WNL (7) Prediabetes Current Visit: Yes Status: Chronic Assessment and Plan: A1C 6.6, continue lifestyle modification - Time Spent with Patient Total time spent is greater than 50% in coordination of care (as documented) at patient's floor/unit and/or counseling patient: Internal Medicine: Result - Labs CBC & Chem 7: 08/12/18 04:03 08/12/18 04:03 Labs: Short CBC 08/11/18 08/12/18 Range/Units 01:48 04:03 WBC 12.6 H 12.8 H (4.3-11.1) K/mcL Hgb 13.6 D 13.2 (12.9-16.9) g/dL Hct 40.1 39.2 (37.5-50.1) % Plt Count 241 235 (140-400) K/mcL Neutrophils # 7.2 7.9 (1.6-8.9) K/mcL BMP 08/11/18 08/12/18 01:48 04:03 Sodium 141 140 Potassium 3.2 L 3.5 Chloride 108 H 105 Carbon Dioxide 22 L 27 BUN 14 21 Creatinine 0.78 1.11 Glucose 181 H 140 H Calcium 9.4 8.7 - ABG Interpretation ABG results: PT/INR, D-dimer PT 15.9 Seconds (9.4-12.1) H 08/11/18 01:48 - Impressions Impressions Echocardiogram 08/10/18 21:02 Impressions: LVEF 45%. Mild global left ventricular systolic dysfunction. Moderate left ventricular diastolic dysfunction. Mild concentric left ventricular hypertrophy. Mildly dilated right ventricle with mild hypokinesis. Moderate bi-atrial dilatation. Moderate mitral regurgitation. Moderate tricuspid regurgitation. Mild pulmonary hypertension. Consult Discharge Plan - Plan Referrals: Sushma Han, [facility]ATH[employer]ER [Primary Care Provider] - (3) Hyperlipidemia Qualifiers: Hyperlipidemia type: mixed hyperlipidemia Qualified Code(s): E78.2 - Mixed hyperlipidemia (4) Hypertension Qualifiers: Hypertension type: essential hypertension Qualified Code(s): I10 - Essential (primary) hypertension
[2018-08-12] MEDS: Lisinopril-HCTZ 20-12.5mg TABLET PO SCH (09:36)
--- NOTE | 2018-08-12 09:44 | Cardiology Progress Note ---
Addendum entered and electronically signed by Fam Banda MD 08/12/18 13:37: I examined this patient and my medical decision-making was reviewed with the Resident Physician. I agree with the documented findings, disposition and treatment plan as described except to the extent set forth below. Continue rate control and anticoagulation. See below. Original Note: <Jacque Mathew Lani - Last Filed: 08/12/18 10:21> Date of Encounter: 08/12/18 Time of Encounter: 08:15 Assessment and Plan (1) Atrial fibrillation with rapid ventricular response Current Visit: Yes Status: Acute New onset. Unknown duration and etiology. Patient remains asymptomatic. Cardizem drip discontinued overnight secondary to hypotension. Heart rate back up to 120s-130s and irregular. No acute ischemia on EKG Troponin <0.03. TSH WNL. Echocardiogram 08/11/18 with LVEF 45%, mild global LV systolic dysfunction, moderate LV diastolic dysfunction, mildly dilated RV with hypokinesis, biatrial dilation, moderate mitral and tricuspid regurgitation, mild pulmonary hypertension. Continue to rate control. Resume Cardizem drip at 10mg/hr. If patient becomes hypotensive, give IV fluids and titrate the Cardizem to lower dose. Possible transition to PO medications tomorrow if rate is better controlled. Metoprolol was increased to 50mg PO BID, continue. CHADsVASC 2 (age and hypertension). Continue with heparin. Recommend transition to oral anticoagulant such as Xarelto or Eliquis. No plans for cardiac cath at this time. (2) Congestive heart failure Current Visit: Yes Status: Acute Etiology unknown.Possible due to unknown duration of atrial fibrillation with RVR. Echocardiogram results reviewed. EF 45%. Plan as above, rate control for atrial fibrillation. On metoprolol and lisinopril/HCTZ. 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 Qualifiers: Hypertension type: essential hypertension Qualified Code(s): I10 - Essential (primary) hypertension (4) Bilateral lower extremity edema Current Visit: Yes Status: Chronic Chronic per patient. Echo results as above. Resume home medications on discharge. (5) Hyperlipidemia Current Visit: Yes Status: Chronic Continue with statin. Qualifiers: Hyperlipidemia type: mixed hyperlipidemia Qualified Code(s): E78.2 - Mixed hyperlipidemia Discussion w patient/family: The assessment and plan as outlined above was discussed with the patient and/or family members who expressed understanding and agreement. All questions were answered. Thank you for involving us in the care of your patient. Please call with any questions. Subjective Principal diagnosis: atrial fibrillation with RVR Interval history: Patient states he is doing well. Denies palpitations, chest pain, shortness of breath, lightheadedness. No acute complaints. Heart rate improved yesterday evening. Patient hypotensive overnight and cardizem was discontinued. Heart rate is now back up to 120-130s while evaluating the patient. Remains irregular. Objective Vital Signs, Last 4 Hours Temp Pulse Resp BP Pulse Ox 08/12/18 07:26 97.9 F 99 16 103/78 91 General: Conversant, No Apparent Distress HEENT: Atraumatic, Normocephaly Neck: No JVD, Normal carotid pulses Cardiac: Normal S1 and S2, No Murmur, Other (irregular rate and rhythm) Lungs: Normal Breath Sounds, No Wheeze, Rales, Rhonchi Neuro: Alert and responsive, No focal deficits noted Abdomen: Soft, Non-Tender Musculoskeletal: No Chest Wall Tenderness Extremities: Other (1+ lower extremity pitting edema, unchanged from yesterday's exam) Results 08/12/18 04:03 08/12/18 04:03 Lab Results 08/11/18 08/11/18 08/11/18 01:48 01:48 01:48 WBC 12.6 H Hgb 13.6 D Hct 40.1 Plt Count 241 INR 1.4 APTT TNP Sodium 141 Potassium 3.2 L Chloride 108 H Carbon Dioxide 22 L BUN 14 Creatinine 0.78 Glucose 181 H Calcium 9.4 Magnesium 08/12/18 08/12/18 04:03 04:03 WBC 12.8 H Hgb 13.2 Hct 39.2 Plt Count 235 INR APTT Sodium 140 Potassium 3.5 Chloride 105 Carbon Dioxide 27 BUN 21 Creatinine 1.11 Glucose 140 H Calcium 8.7 Magnesium 2.2 - Imaging and Cardiology Echo: report reviewed (LVEF 45%, mild global LV systolic dysfunction, moderate LV diastolic dysfunction, mildly dilated RV with hypokinesis, biatrial dilation, moderate mitral and tricuspid regurgitation, mild pulmonary hypertension.) Consult Discharge Plan - Plan Referrals: Sushma Han, CHANGE MANAGEMENT CONSULTANT [Primary Care Provider] - <Fam Banda - Last Filed: 08/12/18 13:33> Assessment and Plan Discussion w patient/family: The assessment and plan as outlined above was discussed with the patient and/or family members who expressed understanding and agreement. All questions were answered. Thank you for involving us in the care of your patient. Please call with any questions. Objective Vital Signs, Last 4 Hours Temp Pulse Resp BP Pulse Ox 08/12/18 11:10 98.0 F 58 16 105/61 96 Results 08/12/18 04:03 08/12/18 04:03 Lab Results 08/12/18 08/12/18 04:03 04:03 WBC 12.8 H Hgb 13.2 Hct 39.2 Plt Count 235 Sodium 140 Potassium 3.5 Chloride 105 Carbon Dioxide 27 BUN 21 Creatinine 1.11 Glucose 140 H Calcium 8.7 Magnesium 2.2
[2018-08-12] MEDS: Heparin 25,000 UNIT/500 ML D5W 25,000 UNIT/500 ML BAG IVC SCH (14:07)
[2018-08-12] MEDS ORDERED: *HR* LORazepam 1 MG TABLET PO SCH (22:00)
[2018-08-13 08:24] LABS: Basophils % 0.2 %; Eosinophils # 0.1 K/mcL (0.0-0.6); Eosinophils % 1.1 %; Hematocrit 40.5 % (37.5-50.1); Hemoglobin 13.8 g/dL (12.9-16.9); Immature Granulocytes % 0.3 % (0-4); Lymphocytes # 4.3 K/mcL (0.6-4.6); Lymphocytes % 34.7 %; Mean Corpuscular HGB Conc 34.1 g/dL (31.6-35.5); Mean Corpuscular Hemoglobin 30.9 pg (28.0-33.3); Mean Corpuscular Volume 90.6 fL (83.0-100.0); Mean Platelet Volume 13.1 fL (9.4-12.4); Monocytes # 1.3 K/mcL (0.0-1.3); Monocytes % 10.2 %; Neutrophils # 6.6 K/mcL (1.6-8.9); Platelet Count 231 K/mcL (140-400); Red Blood Count 4.47 M/mcL (4.19-5.50); Segmented Neutrophils % 53.5 %
[2018-08-13 08:44] LABS: BUN/Creatinine Ratio 24 (6-26); Blood Urea Nitrogen 21 mg/dL (8-23); Calcium 8.8 mg/dL (8.6-10.3); Carbon Dioxide 25 mEq/L (23-29); Chloride 105 mEq/L (98-107); Glucose 121 mg/dL (70-105); Osmolality,Calculated 288 (280-300); Potassium 3.4 mEq/L (3.5-5.1); Sodium 137 mEq/L (136-145); eGFR For Non-African Americans > 60 (> 60)
[2018-08-13] MEDS: Lisinopril-HCTZ 20-12.5mg TABLET PO SCH (09:00)
[2018-08-13] MEDS ORDERED: Apixaban 5 MG TABLET PO SCH (09:00)
--- NOTE | 2018-08-13 11:37 | Discharge Summary ---
- NOTES TO OUTPATIENT PROVIDER Notes to Outpatient Provider: 72-year-old male admitted and managed for atrial fibrillation with rapid ventricular response, new diagnosis and new acute systolic CHF. he also had multiple elctrolyte derangements including hypokalemia and hypomagnessemia, these have been corrected. Cardiology was consulted and did not rrecommend any interventions. Patient was asymptomatic prior to admission and remained asymptomatic inpatient. He is discharged with controlled heart rate on metoprolol and Eliquis for anticoagulation. Follow-up with primary care physician and cardiology as outpatient. Patient educated about plan of care, verbalized understanding. Date of Encounter: 08/13/18 Time of Encounter: 11:33 - Discharge Diagnosis (1) Atrial fibrillation with rapid ventricular response Priority: Primary Status: Resolved Assessment and Plan: New onset, uncertain etiology HR prior to arrival reportedly 160s to 170s bpm EKG shows Afib with RVR, to ischemic changes identified Troponin negative TSH WNL CXR shows no acute cardiopulmonary processes ECHo shows multiple WMA and EF 45% Discharged home on Metoprolol 50mg BID, and Eliquis Patient is asymptomatic Follow up with cardiology as out-patient (2) DVT prophylaxis Priority: Primary Status: Resolved (3) Hyperlipidemia Priority: Secondary Status: Chronic Assessment and Plan: Continue home med simvastatin Qualifiers: Hyperlipidemia type: mixed hyperlipidemia Qualified Code(s): E78.2 - Mixed hyperlipidemia (4) Hypertension Priority: Secondary Status: Chronic Assessment and Plan: Continue BB, amlodipine, and Lisinopril-HCTZ Qualifiers: Hypertension type: essential hypertension Qualified Code(s): I10 - Essential (primary) hypertension (5) Bilateral lower extremity edema Priority: Secondary Status: Chronic Assessment and Plan: Chronic, stable Likley due to CHF, patient is on diuretics, continue same (6) Hypokalemia Priority: Primary Status: Resolved (7) Prediabetes Priority: Secondary Status: Chronic Assessment and Plan: A1C 6.6, continue lifestyle modification (8) CHF (congestive heart failure) Priority: Primary Status: Acute Assessment and Plan: Continue BB, Lisinopril, HCTZ, Amlodipine Qualifiers: Heart failure type: systolic Heart failure chronicity: acute on chronic Qualified Code(s): I50.23 - Acute on chronic systolic (congestive) heart failure Hospital course: Mr. Sanchez is a 72 year old male admitted and managed for atrial fibrillation with rapid ventricular response, new diagnosis and new acute systolic CHF. he also had multiple elctrolyte derangements including hypokalemia and hypomagnessemia, these have been corrected. Cardiology was consulted and did not rrecommend any interventions. Patient was asymptomatic prior to admission and remained asymptomatic inpatient. He is discharged with controlled heart rate on metoprolol and Eliquis for anticoagulation. Follow-up with primary care physician and cardiology as outpatient. Patient educated about plan of care, verbalized understanding. See each diagnosis for more details Discharge discussed with: patient, nurse - Time Spent with Patient Total time spent providing and/or coordinating discharge services: Greater than 30 minutes (40 mins spent on face to face, education, med confirmation, documentation and med-rec) - Discharge Medications Prescriptions: Apixaban [Eliquis] 5 mg PO BID #60 tab.ds.pk Metoprolol [Lopressor] 50 mg PO BID #60 tablet Home Medications: LORazepam [Ativan] 1 mg PO HS 08/10/18 [History] Lisinopril-HCTZ 20-12.5 [Prinzide 20-12.5] 2 tab PO QAM 08/10/18 [History] Simvastatin [Zocor] 20 mg PO DAILY 08/10/18 [History] amLODIPine [Norvasc] 5 mg PO DAILY 08/10/18 [History] Apixaban [Eliquis] 5 mg PO BID #60 tab.ds.pk 08/13/18 [Rx] Metoprolol [Lopressor] 50 mg PO BID #60 tablet 08/13/18 [Rx] Allergies/Adverse Reactions: Allergy/AdvReac Type Severity Reaction Status Date / Time No Known Allergies Allergy Verified 08/10/18 17:18 Date of admission: 08/11/18 13:38 Primary care physician: Sushma Han CNP Consults: 08/10/18 21:02 Consult to Cardiology [CONS] Routine Comment: Consulting Provider: Cardiology Priscilla Reason for Consult: new afib with rvr Call Completed: No Discharging clinician: Marcell Mariee Anticipated date of discharge: 08/13/18 - Constitutional Vitals: Temp Pulse Resp BP Pulse Ox 97.9 F 73 16 111/74 96 08/13/18 08:16 08/13/18 08:16 08/13/18 08:16 08/13/18 08:16 08/13/18 08:16 General appearance: Present: A&O X 3, pleasant, no acute distress Exam: see below - Head Head exam: Present: atraumatic, normocephalic - Eye Eye exam: Present: PERRL, conjuntiva pink, sclera anicteric Pupils: Present: PERRL - Neck Neck exam general surgery: Present: supple, trachea midline. Absent: lymphadenopathy - Respiratory Respiratory exam: Present: CTAB. Absent: accessory muscle use, rales, rhonchi, wheezes - Cardiovascular Cardiovascular exam: Present: RRR, +S1, +S2. Absent: diastolic murmur, gallop, rubs, systolic murmur - GI/Abdominal GI/Abdominal exam: Present: normal bowel sounds, soft, no peritoneal signs. Absent: distended, tenderness - Extremities Exam Extremities exam: Present: pedal edema, warm, radial pulses palpable and symmetrical. Absent: calf tenderness, cyanotic - Neurological Exam Neurological exam: Present: CN II-XII intact, oriented X3, no focal deficits. Absent: pronater drift, facial droop, speech deficit - Skin Skin exam: Present: dry, intact - Patient Status Disposition: Home, Self-Care Condition: Good Functional capacity at discharge: independent ambulation Overall status at discharge: patient is progressing back to baseline - Discharge Instructions Follow Up With: Sushma Han MOTION PICTURE PROJECTIONIST APPRENTICE [Primary Care Provider] - - Diet and Activity Activity: resume usual activities as tolerated Diet: diabetic diet, low fat, low cholesterol, low salt diet
[2018-08-13 11:51] VITALS: BP 119/73
== END 2018-08-13 14:11 | disposition home or self-care (01) | DRG 308 ==
LOC: EMEROOARM 16:59 → 2ANU 16:59
PROVIDERS: ADMIT Internal Medicine; ATTEND Internal Medicine

== ENCOUNTER 2018-11-21 06:00 | Inpatient (IN) ==
[~2018-11-21 06:00] MED LIST: Dextrose 50 % in Water (Vial) 30 ML, Sodium Bicarbonate 20 MEQ, Lidocaine 1% 5 ML, Insu... TH ONE; Dextrose 50 % in Water (Vial) 30 ML, Sodium Bicarbonate 20 MEQ, Potassium Chloride 15 M... TH ONE; Heparin 15,000 UNIT in 0.9 % Sodium Chloride 500 ML IV ONE; Insulin Human Regular 100 UNIT in 0.9 % Sodium Chloride 100 ML IV PRN; Norepinephrine 4 MG in D5% in Water 250 ML IVC PRN
[2018-11-21] MEDS ORDERED: Lidocaine 2% Syringe 100 MG/5 ML IV ONE (06:01)
[2018-11-21] MEDS ORDERED: Tranexamic Acid 1,000 MG/10 ML VIAL IVPB ONE (06:01)
[2018-11-21] MEDS ORDERED: Mannitol 25% vial 12.5 GM/50 ML VIAL IVP ONE (06:01)
[2018-11-21] MEDS ORDERED: *HR* Magnesium Sulfate 2 GM/50 ML PIGGYBACK IVPB ONE (06:01)
[2018-11-21] MEDS ORDERED: *HR* Phenylephrine 10 MG/ML VIAL IVC ONE (06:01)
[2018-11-21] MEDS ORDERED: Albumin Human 25% 25 GM/100 ML IV.SOLN IV ONE (06:01)
[2018-11-21] MEDS ORDERED: D5% in Water 250 ML IV BAG IV ONE (06:01)
[2018-11-21] MEDS ORDERED: *HR* Heparin 10,000 UNIT/10 ML VIAL IV ONE (06:01)
[2018-11-21] MEDS ORDERED: Heparin 1,000 UNITS/500 mL IV.SOLN IVC ONE (06:01)
[2018-11-21] MEDS ORDERED: Chlorhexidine Rinse 15 ML MOUTHWASH MM STA (06:25)
[2018-11-21] MEDS ORDERED: Ringers Solution, Lactated 1,000 ML IVC SCH (06:30)
[2018-11-21] MEDS ORDERED: CeFAZolin Syr 2,000MG/20 ML 2,000 MG/20 ML SYRINGE IVPB ONE (06:50)
[2018-11-21] MEDS ORDERED: Famotidine 20 MG/2 ML VIAL ONE (06:51)
[2018-11-21] MEDS ORDERED: *HR* Rocuronium Bromide 50 MG/5 ML VIAL ONE (06:51)
[2018-11-21] MEDS ORDERED: *HR* Etomidate 20 MG/10 ML AMPUL IVP ONE (06:51)
[2018-11-21] MEDS ORDERED: *HR* PHENYLEPHRINE 1,000 MCG/10 ML SYRINGE IVP ONE ×2 (06:51→10:31)
[2018-11-21] MEDS ORDERED: Tranexamic Acid 1,000 MG/10 ML VIAL ONE ×2 (06:52→09:19)
[2018-11-21] MEDS ORDERED: Protamine Sulfate 250 MG/25 ML VIAL IVP ONE (06:52)
[2018-11-21] MEDS ORDERED: *HR* Midazolam HCl 5 MG/5 ML VIAL IVP ONE (06:57)
[2018-11-21] MEDS ORDERED: *HR* FentaNYL (PF) 1,000 MCG/20 ML VIAL ONE (06:57)
[2018-11-21] MEDS ORDERED: Aspirin 81 MG TAB.CHEW PO STA (07:01)
[2018-11-21] MEDS ORDERED: NiCARdipine 2.5 MG/10 ML Syringe IVPB ONE (07:05)
[2018-11-21] MEDS ORDERED: Nitroglycerin 25 MG/250 ML INFUS..BTL IVC ONE (07:05)
--- NOTE | 2018-11-21 07:18 | History & Physical Report ---
Date of Encounter: 11/21/18 Time of Encounter: 07:01 24 Hour HP Update - Instructions Instructions: If the History and Physical is less than 30 days old and was completed prior to A.M. admission and or procedure and has NOT been updated on calendar day of procedure please complete this update prior to performing procedure. - Update Patient reports changes in Medical Condition: No Changes in examination, assessment, or condition: No Changes in Medication: No Preop tests/diagnostics Reviewed: Yes Pre-Op MRSA Screen: Negative Surgery Remains Indicated: Yes Consent for Planned Operative Procedure(s) Verified: Yes - Pre-Operative Checklist Preoperative Checklist Indicated: No Prophylactic Antibiotic Ordered: Yes Home Medications Include Beta Melissa: Yes Beta Melissa Taken Today (Day of Surgery): Yes Beta Melissa Taken Yesterday (Day Prior to Surgery): Yes
--- NOTE | 2018-11-21 07:31 | Anesthesia Evaluation PreOp ---
Date of Encounter: 11/21/18 Time of Encounter: 07:27 - Past History Planned Operation: CABG, modified MAZE Cardiac History: CHF, HTN, Hyperlipidemia, Arrhythmia (a-fib), Other (CAD) Pulmonary History: Denies Any Significant HX TYPESETTING SUPERVISOR History: Denies Any Significant HX Other Medical History: Denies Any Significant HX Anesthesia History: No Prior Anesthetic Complications, Past Anesthesia (splenectomy 1980) Alcohol Use: none Drug use: none Medications and Allergies Apixaban [Eliquis] 5 mg PO BID #60 tab.ds.pk 08/13/18 [Rx] Atorvastatin [Lipitor] 10 mg PO HS 30 Days #30 tablet 10/29/18 [Rx] Carvedilol [Coreg] 6.25 mg PO BID 30 Days #60 tablet 10/29/18 [Rx] Diltiazem CD (24hr) [Cardizem CD] 180 mg PO DAILY #60 cap.er.24h 10/29/18 [Rx] Allergy/AdvReac Type Severity Reaction Status Date / Time Hydralazine Allergy Itching Verified 09/12/18 07:43 - Meds/Allergy Pre-op Review Medications Reviewed: Yes Allergies Reviewed: Yes Beta Blockers on Current Med List: Yes (Coreg) If Beta Blockers taken, Date/Time (Last Dose taken): today 729 Anesthesia Results - Labs Laboratory Tests 10/26/18 11/11/18 11/11/18 14:46 11:59 11:59 Hgb 15.1 Hct 45.8 Plt Count 326 PT INR APTT 37.7 H Sodium 139 Potassium 4.0 BUN 14 Creatinine 0.79 Hemoglobin A1c Nasal Screen MRSA (PCR) 11/11/18 11/15/18 11/15/18 11:59 15:40 15:40 Hgb Hct Plt Count PT 17.0 H INR 1.5 APTT Sodium Potassium BUN Creatinine Hemoglobin A1c 7.1 H Nasal Screen MRSA (PCR) Negative - Imaging Additional studies: cath: Indications: Abnormal Test - Stress Impressions: Single vessel coronary artery disease. The left ventricle is normal and has low normal contractility EF 50% Recommendations: Evaluate for CABG/Maze Optimal medical therapy of patient's disease. Aggressive risk factor modification. LV Ventriculography Ejection Method: LV Gram Ejection Fraction: 50% Wall Motion: SPEARS Anterobasal Normal Anterolateral Normal Apical: Normal Inferoapical Normal Inferobasal Normal Coronary Dominance: right Lesion Findings/Interventions *Left Main artery Absent. LAD and Cx have separate ostia. * Left Anterior Descending There is a 95% stenosis in the Proximal LAD- bifurcation lesion There is a 80% stenosis in the 1st Diagonal- bifurcation lesion, large vessel * Circumflex There is a 30% stenosis in the Proximal Circumflex. There is a 25% stenosis in the Mid Circumflex. * Ramus The Ramus is angiographically free of disease. * Right Coronary Artery There is a 30% stenosis in the Proximal RCA. There is a 30% stenosis in the Mid RCA. stress: Impression: Pharmacologic stress ECG is non-diagnostic for ischemia due to baseline non-specific ST and T changes. Chest discomfort reported during stress. Gated EF = 50%. Medium sized, mild to moderate intensity, fixed defect involving the inferior, inferoseptal, and apex segments possibly due to a prior infarct. Perfusion imaging was negative for ischemia. echo: Indications: New Atrial Fibrillation Estimated RA pressure is 15 mmHg. Left Ventricular Wall Motion: Rest Echo Findings The apex, apical inferior, mid inferior, basal inferior, apical anterior, mid anterior, basal anterior, apical septal, mid inferior septal, basal inferior septal, apical lateral, mid anterior lateral, basal anterior lateral, mid anterior septal, mid inferior lateral, basal anterior septal and basal inferior lateral oneil were hypokinetic. Findings: Study Quality * Technically adequate exam. ECG Findings * Atrial fibrillation. Left Ventricle * LVEF 45%. * Mild concentric left ventricular hypertrophy. * Mild global left ventricular systolic dysfunction. * Definity echo contrast was used. * Normal LV chamber size. * Moderate left ventricular diastolic dysfunction. Right Ventricle * Mildly dilated right ventricle. * Mild right ventricular hypokinesis. Left Atrium * Moderately dilated left atrium. Right Atrium * Moderately dilated right atrium. Interatrial Septum * Interatrial septum not well evaluated. Aortic Valve * Trileaflet aortic valve. * Trileaflet aortic valve with normal function. * No aortic regurgitation. * No aortic stenosis. Mitral Valve * Moderate mitral regurgitation. Tricuspid Valve * Moderate tricuspid regurgitation. * Estimated RVSP is 37 mmHg. * Estimated RA pressure is 15 mmHg. * Mild pulmonary hypertension. Pulmonic Valve * Normal pulmonic valve structure. * Mild pulmonic regurgitation. Aorta * Normally sized aortic root. Pericardium * The pericardium appears normal. IVC * The IVC is dilated. * < 50% respiratory change. Anesthesia Exam Selected Entries 11/21/18 06:25 Temperature 98.3 F Pulse Rate 87 Respiratory Rate 18 Blood Pressure 112/74 O2 Sat by Pulse Oximetry 96 Weight: 88kg BMI 31 NPO (# of Hours): 8 - HEENT Pupil (Motor): EOMI Mallampati: II Teeth: Missing, Poor dentition Oral Opening: Greater than 3 - TYPESETTING SUPERVISOR LOC: Oriented TYPESETTING SUPERVISOR Motor: Normal RUE, Normal LUE, Normal RLE, Normal LLE, Normal Face TYPESETTING SUPERVISOR Sensory: Normal: RUE, LUE, RLE, LLE, Face - Cardiac Rhythm: Irregular Murmur: None - Pulmonary Breath Sounds: bilateral Clear Respiratory Effort: Symmetrical Anesthesia Assess/Plan ASA Score: 4 Level of consciousness: Cooperative, Oriented, Tranquil Anesthetic Plan: General Monitoring Plan: Standard Monitors, A-Line, PAC, ERICA Recovery Plan: ICU (agrees to GA, lines, ERICA and blood)
[2018-11-21 08:10] LABS: ABG Base Excess -2 mEq/L (-2 to 3); ABG Chloride 106 mEq/L (98-107); ABG Glucose 117 mg/dL (60-95); ABG HCO3 22 mEq/L (21-27); ABG Ionized Calcium 1.13 mmol/L (1.15-1.35); ABG Oxygen Saturation 100 % (95-98); ABG PCO2 33 mmHg (35-45); ABG PH 7.42 pH Units (7.32-7.45); ABG PO2 164 mmHg (85-104); ABG TCO2 23 mEq/L (20-26)
[2018-11-21] MEDS ORDERED: Amiodarone Premix 360 MG/200 ML BAG IVC ONE ×2 (08:26→11:21)
[2018-11-21] MEDS ORDERED: *HR* Amiodarone 150 MG/3 ML VIAL IVPB ONE (08:26)
--- NOTE | 2018-11-21 09:04 | Anesthesia Procedures ---
Date of Encounter: 11/21/18 Time of Encounter: 07:50 Procedures: Anesthesia - Arterial Line Consent obtained: written consent Time out performed: Yes Sedation: Versed (mg): 2 Sedation: Fentanyl (mcg): 100 Supplemental Oxygen via Nasal Cannula (L/min): 2 Local Anesthetic: Lidocaine 1% Amount of Anesthetic used (mls): 1 Size (Gauge): 20 Length (inches): 5 Technique Used: sterile prep, guide wire technique, direct puncture technique Post-Procedure: line taped into place, dry sterile dressing placed Patient tolerated procedure: well, no complications Complications: none Site: Radial L - Central Line Placement Right IJ Consent obtained: written consent Time out performed: Yes Patient placed on monitor/pulse ox: Yes MD prep: mask, gown, gloves Central line prep: Chlorhexidine scrub Ultrasound used for placement: Yes Technique: Seldinger Lumen Inserted: Introducer Post procedure: sutured in place, good blood return, all ports aspirated, flushed, capped Patient tolerated procedure: well, no complications Complications: none Comments: introducer placed easily. [place] placed without arrythmia.
[2018-11-21 09:24] LABS: ABG Base Excess -4 mEq/L (-2 to 3); ABG Chloride 107 mEq/L (98-107); ABG Glucose 141 mg/dL (60-95); ABG HCO3 22 mEq/L (21-27); ABG Ionized Calcium 1.03 mmol/L (1.15-1.35); ABG Oxygen Saturation 97 % (95-98); ABG PCO2 44 mmHg (35-45); ABG PH 7.31 pH Units (7.32-7.45); ABG PO2 94 mmHg (85-104); ABG TCO2 24 mEq/L (20-26)
[2018-11-21 09:56] LABS: ABG Base Excess -1 mEq/L (-2 to 3); ABG Chloride 102 mEq/L (98-107); ABG Glucose 177 mg/dL (60-95); ABG HCO3 25 mEq/L (21-27); ABG Ionized Calcium 1.09 mmol/L (1.15-1.35); ABG Oxygen Saturation 100 % (95-98); ABG PCO2 42 mmHg (35-45); ABG PH 7.37 pH Units (7.32-7.45); ABG PO2 438 mmHg (85-104); ABG TCO2 26 mEq/L (20-26)
[2018-11-21] MEDS ORDERED: Albumin Human 5% 50.0 GM/1,000 ML VIAL ONE (10:50)
[2018-11-21 10:55] LABS: ABG Base Excess -3 mEq/L (-2 to 3); ABG Chloride 107 mEq/L (98-107); ABG Glucose 101 mg/dL (60-95); ABG HCO3 22 mEq/L (21-27); ABG Ionized Calcium 1.13 mmol/L (1.15-1.35); ABG Oxygen Saturation 98 % (95-98); ABG PCO2 40 mmHg (35-45); ABG PH 7.36 pH Units (7.32-7.45); ABG PO2 110 mmHg (85-104); ABG TCO2 24 mEq/L (20-26)
--- NOTE | 2018-11-21 11:08 | Operative Note ---
Date of procedure: 11/21/18 Pre-op diagnosis: 1. CAD 2. Atrial fibrillation, chronic Post-op diagnosis: same Procedure: 1. CABG 2 (OLIVERA to LAD, SVG to D1). 2. Modified Maze procedure using radiofrequency ablation. 3. Left atrial appendage stapling. 4. Endoscopic vein harvesting, greater saphenous vein from right lower extremity. Implants: None. Complications: None. Surgeon: Susana Mcintosh Was there an speech correction assistant present: Yes Brass Polisher: Fam Moyer Estimated blood loss (cc): 500 Specimen: None. Condition: stable Disposition: ICU Procedure in Detail: INDICATIONS FOR OPERATION: The patient is a 73 year old hypertensive man with hypercholesterolemia and newly diagnosed atrial fibrillation. The patient remains completely asymptomatic, denying any substernal chest pain, arm pain, back pain, neck pain, shortness of breath, dyspnea exertion, diaphoresis, or lightheadedness. He states that he had a routine physical examination in April 2018 and had a normal heart rhythm at that time. At his follow-up appointment with his primary care physician in June 2018, he was found to have a rapid irregular heart rhythm. An ECG revealed atrial fibrillation. He was referred to Dr. Fam Banda for possible cardiac ablation. In the preprocedure workup the patient underwent a transthoracic echocardiogram which revealed an LVEF 45% with mild left concentric left ventricular hypertrophy. Mild global left ventricular systolic dysfunction was noted, as was moderate mitral regurgitation, mild pulmonic regurgitation and moderate tricuspid regurgitation. He has mild pulmonary pretension with an estimated RVSP 37 mmHg. The patient was considered for ablation; however, Dr. Banda recommended a nuclear stress test prior to the procedure. The patient had chest discomfort during the stress portion. He had an estimated LVEF 50% with a medium-sized, mild to moderate intensity, fixed defect in the inferior, inferoseptal, and apical segments. He was recommended for cardiac catheterization. This study performed today revealed severe single-vessel CAD. In particular, the patient had a 95% proximal LAD lesion involving the D1 branch. The D1 branch had an 80% proximal lesion. The LCx arises from a separate ostium and has no disease. The RCA had no disease. The patient has been recommended for combined CABG and modified Maze procedure with left atrial appendage stapling. FINDINGS AT OPERATION: The aorta was of normal caliber without calcification. The coronary artery proximal 1.5-2 mm in diameter and had mild distal disease. The greater saphenous vein was harvested endoscopically from the right lower extremity from the knee to the mid thigh and was of good quality. Total bypass time 54 minutes, cross-clamp time 33 minutes, intentional hypothermia of 34.5 degrees centigrade. DESCRIPTION OF OPERATION: After obtaining informed operative consent from the patient, he was taken to the operating room where a satisfactory general endotracheal anesthetic was induced. Appropriate monitor lines were placed, and the patient's chest, abdomen, and lower extremities were prepped and draped in a sterile fashion. An amiodarone drip was started for his atrial fibrillation. The greater saphenous vein was harvested endoscopically from the right lower extremity from the knee to the mid thigh. The vein was removed, distended, and found to be of good quality. The simultaneous tissue and skin edges were reapproximated running Vicryl sutures. Simultaneously, a standard median sternotomy incision was made and the sternum divided. The OLIVERA was taken down from its bed and side branches divided between hemoclips. The sternum was and the pericardium opened and reflected laterally. The patient was prepared for cannulation by placing pursestring sutures the distal ascending aorta, mid-ascending aorta, and right atrial appendage. The patient was heparinized with used to is greater than 200 seconds, the distal ascending aorta was cannulated followed by placement of a dual stage venous cannula through the right atrial appendage and into the inferior vena cava. A stab-in antegrade metabolic cannula was placed in the mid-ascending aorta. The patient was placed on bypass and the temperature allowed to drift to 34.5 degrees centigrade. The distal targets were identified and the aorta was crossclamped. The patient received 700 mL of cold antegrade crystalloid cardioplegia through the aortic root and the patient's heart obtained rapid diastolic arrest. The right inferior and superior pulmonary veins were encircled with a red rubber catheter and the jaws of a radiofrequency ablation device were placed around the pulmonary veins. A transmural burn was applied to the right inferior and superior pulmonary veins. This processes and repeated for the left inferior and superior pulmonary veins. The left atrial appendage was then occluded with a stapling device. The D1 branch was opened be blade and the vein was anastomosed in an end-to-side fashion using running 7-0 Prolene suture. The anastomosis found to be hemostatic and the patient received a final dose of cold antegrade Crisler cartilage up to the aortic root. The LAD was opened the [place] blade and the OLIVERA was anastomosed in an end-to-side fashion to the LAD using a running 7-0 Prolene suture. The anastomosis found to be hemostatic and the mammary pedicle was tacked to the epicardium using interrupted 5-0 silk suture. Rewarming was begun during this anastomosis. The aortic cross-clamp was released and the heart distended. The vein was measured and cut appropriate length. The vein was anastomosed in end-to-side fashion to the aorta using a running 5-0 Prolene suture. The vein graft was occluded with bulldog clamps and de-aired the 25-gauge needle prior to removing the partial occluding clamp. The proximal distal anastomoses were found to be hemostatic and the proximal anastomoses were marked with radiopaque loops. Two right ventricular temporary epicardial pacing leads were placed and 3 chest suture placed, 2 in the mediastinum once the left pleural space. During rewarming the patient's heart rhythm was atrial fibrillation and the patient received a single 10 J synchronized cardioversion. The patient's heart rhythm was then junctional. When the patient's systemic temperature reached 36 degrees centigrade, he was ventilated and received volume. He was weaned from bypass and required no inotropic support. The amiodarone drip was restarted. Protamine was administered and the aortic and venous cannulae were removed. The pursestring sutures were secured. The venous cannulation site was reinforced with a running 4-0 Prolene suture. At this point the patient's heart rhythm became normal sinus rhythm. The pericardium was loosely approximated in midline using interrupted 0 silk suture and the sternum was reapproximated sternal wires. The pectoralis major fascia, rectus abdominis fascia, subcutaneous tissue, and skin edges were reapproximated using running Vicryl sutures. Sterile dressings were applied. The patient was transferred to the ICU in satisfactory postoperative condition. There were no intraoperative complications, and the instrument, needle, and sponge count were corrected at end of operation. - Open Heart Detail RAFAELA (Internal Mammary Artery) Usage: Yes Cardiopulmonary Bypass Time (mins): 54 Aortic Cross Clamp Time (mins): 33 Intentional Hypothermia Temperature (C.): 34.5
[2018-11-21] MEDS ORDERED: Potassium Chloride 40 MEQ/200 ML BAG IVPB PRN (11:21)
[2018-11-21] MEDS ORDERED: Acetaminophen 325 MG TABLET PO PRN (11:21)
[2018-11-21] MEDS ORDERED: Insulin Regular, Human 100 UNIT/ML IV PRN (11:21)
[2018-11-21] MEDS ORDERED: *HR* Dextrose 50 % in Water (Syg) 50 ML SYRINGE IVP PRN (11:21)
[2018-11-21] MEDS ORDERED: Calcium Chloride 1,000 MG in 0.9 % Sodium Chloride 100 ML IVPB PRN (11:21)
[2018-11-21] MEDS ORDERED: Ondansetron 4 MG/2 ML VIAL IVP PRN (11:21)
[2018-11-21] MEDS ORDERED: Acetaminophen 650 MG RECTAL SUPP RC PRN (11:21)
[2018-11-21] MEDS ORDERED: 0.9 % Sodium Chloride w KCl 20 MEQ/1,000 ML MLS IVC SCH (11:30)
[2018-11-21] MEDS ORDERED: Insulin Human Regular 100 UNIT in 0.9 % Sodium Chloride 100 ML IVC SCH (11:30)
[2018-11-21 11:46] LABS: ABG Base Excess 1 mEq/L (-2 to 3); ABG HCO3 25 mEq/L (21-27); ABG Oxygen Saturation 99 % (95-98); ABG PCO2 37 mmHg (35-45); ABG PH 7.44 pH Units (7.32-7.45); ABG PO2 128 mmHg (85-104); ABG TCO2 26 mEq/L (20-26); Blood Gas Modality ASSIST CONTROL; Blood Gas PEEP 5 cm H2O; Blood Gas Respiration Rate 12; Blood Gas VT 600 cc
[2018-11-21 11:55] LABS: Basophils % 0.2 %; Eosinophils # 0.2 K/mcL (0.0-0.6); Eosinophils % 1.1 %; Hematocrit 33.1 % (37.5-50.1); Hemoglobin 11.3 g/dL (12.9-16.9); Immature Granulocytes % 0.7 % (0-4); Lymphocytes % 14.4 %; Mean Corpuscular HGB Conc 34.1 g/dL (31.6-35.5); Mean Corpuscular Hemoglobin 31.7 pg (28.0-33.3); Mean Platelet Volume 11.2 fL (9.4-12.4); Monocytes # 0.7 K/mcL (0.0-1.3); Neutrophils # 10.7 K/mcL (1.6-8.9); Platelet Count 147 K/mcL (140-400); Red Blood Count 3.56 M/mcL (4.19-5.50); Red Cell Distribution Width 15.3 % (11.5-14.5); Segmented Neutrophils % 78.6 %
[2018-11-21 12:03] LABS: INR 1.6
[2018-11-21 12:05] LABS: Activated Partial Thrombo Time 33.5 Seconds (26.0-36.0)
[2018-11-21 12:11] LABS: Prothrombin Time 18.4 Seconds (9.4-12.1)
[2018-11-21 12:12] LABS: BUN/Creatinine Ratio 15 (6-26); Blood Urea Nitrogen 17 mg/dL (8-23); Calcium 8.5 mg/dL (8.6-10.3); Carbon Dioxide 24 mEq/L (23-29); Chloride 105 mEq/L (98-107); Glucose 123 mg/dL (70-105); Magnesium 2.6 mg/dL (1.6-2.6); Osmolality,Calculated 289 (280-300); Potassium 3.4 mEq/L (3.5-5.1); Sodium 138 mEq/L (136-145); eGFR For Non-African Americans > 60 (> 60)
[2018-11-21] MEDS: Ketorolac 15 MG/ML VIAL IVP SCH ×3 (12:13→23:58)
[2018-11-21] MEDS: Norepinephrine 4 MG in D5% in Water 250 ML IVC SCH ×2 (12:16→17:01)
[2018-11-21] MEDS: Metoclopramide 10 MG/2 ML VIAL IVP SCH ×3 (12:19→23:58)
[2018-11-21] MEDS: Pantoprazole 40 MG VIAL IVP SCH (12:19)
--- NOTE | 2018-11-21 13:16 | Electrocardiograph Report ---
[place] [id number] Test Date: 2018-11-21 Pat Name: Kulwant Sanchez Department: 109 Room: [facility] Gender: M Gear Shaper: AF : 1945 Requested By: Erum Mcintosh Order Number: [id number] Reading MD: Masha Camacho Measurements Intervals [place] Rate: 69 P: 25 NH: 222 QRS: -20 QRSD: 111 T: 16 QT: 443 QTc: 462 Interpretive Statements SINUS RHYTHM WITH FIRST DEGREE AV BLOCK POSSIBLE RIGHT VENTRICULAR CONDUCTION DELAY PROLONGED QT INTERVAL Electronically Signed On 11-21-2018 13:15:31 EST by Masha Camacho
[2018-11-21] MEDS: Amiodarone Premix 360 MG/200 ML BAG IVC SCH (14:32)
[2018-11-21] MEDS: *HR* FentaNYL (PF) 100 MCG/2 ML VIAL IVP PRN (15:24)
[2018-11-21 16:16] LABS: ABG Base Excess -2 mEq/L (-2 to 3); ABG HCO3 22 mEq/L (21-27); ABG Oxygen Saturation 99 % (95-98); ABG PCO2 37 mmHg (35-45); ABG PH 7.39 pH Units (7.32-7.45); ABG PO2 146 mmHg (85-104); ABG TCO2 24 mEq/L (20-26); Blood Gas Modality VC; Blood Gas PEEP 5 cm H2O; Blood Gas Respiration Rate 12; Blood Gas VT 600 cc
[2018-11-21] MEDS: Chlorhexidine Rinse 15 ML MOUTHWASH MM SCH (20:25)
[2018-11-21 20:41] LABS: ABG Base Excess -2 mEq/L (-2 to 3); ABG HCO3 22 mEq/L (21-27); ABG Oxygen Saturation 98 % (95-98); ABG PCO2 32 mmHg (35-45); ABG PH 7.44 pH Units (7.32-7.45); ABG PO2 97 mmHg (85-104); ABG TCO2 23 mEq/L (20-26); Blood Gas Modality PRVC; Blood Gas PEEP 5 cm H2O; Blood Gas Respiration Rate 12; Blood Gas VT 600 cc
[2018-11-21] MEDS: *HR* OxyCODONE/APAP 5/325 TABLET PO PRN (21:24)
[2018-11-21 21:35] LABS: ABG Base Excess -2 mEq/L (-2 to 3); ABG HCO3 24 mEq/L (21-27); ABG Oxygen Saturation 96 % (95-98); ABG PCO2 46 mmHg (35-45); ABG PH 7.33 pH Units (7.32-7.45); ABG PO2 89 mmHg (85-104); ABG TCO2 26 mEq/L (20-26); Blood Gas Modality CPAP/PS; Blood Gas PEEP 5 cm H2O; Blood Gas Pressure Support 5 cm H2O
[2018-11-21] MEDS: niCARdipine 40 MG/200 ML MLS IVC SCH ×2 (22:59→23:05)
[2018-11-21] MEDS: Nitroglycerin 25 MG/250 ML INFUS..BTL IVC SCH ×2 (22:59→23:05)
[2018-11-21 23:17] LABS: ABG Base Excess -2 mEq/L (-2 to 3); ABG HCO3 23 mEq/L (21-27); ABG Oxygen Saturation 93 % (95-98); ABG PCO2 41 mmHg (35-45); ABG PH 7.36 pH Units (7.32-7.45); ABG PO2 68 mmHg (85-104); ABG TCO2 25 mEq/L (20-26)
[2018-11-22] MEDS: Amiodarone Premix 360 MG/200 ML BAG IVC SCH (01:26)
[2018-11-22] MEDS: *HR* OxyCODONE/APAP 5/325 TABLET PO PRN ×5 (01:55→23:50)
[2018-11-22] MEDS: niCARdipine 40 MG/200 ML MLS IVC SCH (02:59)
[2018-11-22 03:21] LABS: Basophils % 0.1 %; Hematocrit 38.7 % (37.5-50.1); Immature Granulocytes % 0.6 % (0-4); Immature Platelets 7.4 % (1.1-6.1); Lymphocytes # 1.4 K/mcL (0.6-4.6); Lymphocytes % 9.7 %; Mean Corpuscular HGB Conc 34.6 g/dL (31.6-35.5); Mean Corpuscular Hemoglobin 32.2 pg (28.0-33.3); Mean Platelet Volume 11.6 fL (9.4-12.4); Monocytes # 1.4 K/mcL (0.0-1.3); Monocytes % 9.6 %; Neutrophils # 11.6 K/mcL (1.6-8.9); Platelet Count 173 K/mcL (140-400); Red Blood Count 4.16 M/mcL (4.19-5.50); Red Cell Distribution Width 15.7 % (11.5-14.5)
[2018-11-22 03:23] LABS: Hemoglobin 13.4 g/dL (12.9-16.9)
[2018-11-22 03:28] LABS: INR 1.4; Prothrombin Time 16.1 Seconds (9.4-12.1)
[2018-11-22 03:31] LABS: BUN/Creatinine Ratio 20 (6-26); Blood Urea Nitrogen 20 mg/dL (8-23); Calcium 8.7 mg/dL (8.6-10.3); Carbon Dioxide 23 mEq/L (23-29); Chloride 107 mEq/L (98-107); Glucose 130 mg/dL (70-105); Magnesium 2.2 mg/dL (1.6-2.6); Osmolality,Calculated 290 (280-300); Potassium 3.8 mEq/L (3.5-5.1); Sodium 138 mEq/L (136-145); eGFR For Non-African Americans > 60 (> 60)
[2018-11-22] MEDS: *HR* FentaNYL (PF) 100 MCG/2 ML VIAL IVP PRN (03:48)
[2018-11-22] MEDS: Nitroglycerin 25 MG/250 ML INFUS..BTL IVC SCH (04:10)
[2018-11-22] MEDS: Ketorolac 15 MG/ML VIAL IVP SCH ×4 (05:03→23:50)
[2018-11-22] MEDS: Metoclopramide 10 MG/2 ML VIAL IVP SCH ×4 (05:03→23:50)
--- NOTE | 2018-11-22 05:52 | Cardiothoracic Progress Note ---
Date of Encounter: 11/22/18 Time of Encounter: 05:49 - Assessment and plan (1) CAD (coronary artery disease) Current Visit: No Status: Acute The patient is recovering well from his CABG2, modified Maze procedure, and left atrial appendage stapling. He remained hemodynamically stable overnight and is currently extubated. He has been able to sit in a chair without difficulty. The arterial line, Priest catheter, and Stover-Yamil catheter will be removed. The patient will be transferred to the stepdown unit when a bed is available The assessment and plan as outlined above was discussed with the patient and/or family members who expressed understanding and agreement. All questions were answered. Qualifiers: Coronary Disease-Associated Artery/Lesion type: [place] artery [place] vs. transplanted heart: [place] heart Associated angina: without angina Qualified Code(s): I25.10 - Atherosclerotic heart disease of [place] coronary artery with out angina pectoris - Subjective Procedure(s) Performed: POD#1 S/P CABG2, modified Maze procedure, and left atrial appendage stapling Interval history: The patient remained hemodynamic stable overnight. He is currently extubated and breathing comfortably. He is sitting in a chair without difficulty. He has no complaints. Vital Signs, Last 4 Hours Temp Pulse Resp BP Pulse Ox 11/22/18 05:00 68 12 141/68 92 11/22/18 04:00 75 18 161/84 92 11/22/18 03:59 14 151/77 92 11/22/18 03:14 67 11/22/18 03:00 97.7 F 67 14 134/63 92 11/22/18 02:00 72 16 136/67 93 Oxgyen Flow Rate Oxygen Flow Rate (LPM) 2 Clinical Data, last 8 Hours Output, Chest Tube Drainage 0 Amount [Mediastinal #1] Output, Chest Tube Drainage 10 Amount [Mediastinal #1] Output, Chest Tube Drainage 0 Amount [Mediastinal #1] Output, Chest Tube Drainage 10 Amount [Mediastinal #1] Output, Chest Tube Drainage 10 Amount [Mediastinal #1] Output, Chest Tube Drainage 10 Amount [Mediastinal #1] Output, Chest Tube Drainage 0 Amount [Mediastinal #1] Output, Chest Tube Drainage 5 Amount [Mediastinal #1] Output, Chest Tube Drainage 0 Amount [Mediastinal #2] Output, Chest Tube Drainage 20 Amount [Mediastinal #2] Output, Chest Tube Drainage 0 Amount [Mediastinal #2] Output, Chest Tube Drainage 20 Amount [Mediastinal #2] Output, Chest Tube Drainage 0 Amount [Mediastinal #2] Output, Chest Tube Drainage 10 Amount [Mediastinal #2] Output, Chest Tube Drainage 0 Amount [Mediastinal #2] Output, Chest Tube Drainage 10 Amount [Mediastinal #2] Weight 11/20/18 11/21/18 11/22/18 23:59 23:59 23:59 Weight 88.451 kg - Physical Examination General: Conversant, No Apparent Distress Neck: No JVD, Normal carotid pulses Cardiac: Reg Rate and Rhythm, Normal S1 and S2, No Murmur Incision: No signs of infection, Dry/intact dressing Sternum: Stable Chest tubes: Minimal drainage, Other (No air leak) Pacing Wires: In place Lungs: Normal Breath Sounds, No Wheeze, Rales, Rhonchi Neuro: Alert and responsive, No focal deficits noted Vascular: Normal capillary refill Extremities: No Clubbing, No Cyanosis, No Edema - Labs 11/22/18 03:00 11/22/18 03:00 Lab Results, Last 24 hours 11/21/18 11/21/18 11/21/18 11:38 11:38 11:38 WBC 13.6 H Hgb 11.3 L Hct 33.1 L Plt Count 147 INR 1.6 APTT 33.5 Sodium 138 Potassium 3.4 L Chloride 105 Carbon Dioxide 24 BUN 17 Creatinine 1.15 Glucose 123 H Calcium 8.5 L Magnesium 2.6 11/21/18 11/22/18 11/22/18 17:10 03:00 03:00 WBC 14.5 H Hgb 13.4 D Hct 38.7 Plt Count 173 INR 1.4 APTT 30.0 Sodium Potassium 3.7 Chloride Carbon Dioxide BUN Creatinine Glucose Calcium Magnesium 11/22/18 03:00 WBC Hgb Hct Plt Count INR APTT Sodium 138 Potassium 3.8 Chloride 107 Carbon Dioxide 23 BUN 20 Creatinine 0.98 Glucose 130 H Calcium 8.7 Magnesium 2.2 - VTE Reasons for not Prescribing Prophylaxis: Treatment not Indicated - Low risk for VTE Documentation of Mechanical Device: Graduated compression elastic hosiery Consult Discharge Plan - Plan Referrals: Sushma Han, MEDICAL LABORATORY MANAGER [Primary Care Provider] -
[2018-11-22] MEDS: Pantoprazole 40 MG VIAL IVP SCH (08:05)
[2018-11-22] MEDS: Chlorhexidine Rinse 15 ML MOUTHWASH MM SCH ×2 (08:05→20:48)
[2018-11-22] MEDS ORDERED: Aspirin Enteric Coated 81 MG Tablet PO SCH (09:00)
[2018-11-22] MEDS ORDERED: Furosemide 20 MG/2 ML VIAL IVP SCH (09:00)
[2018-11-22] MEDS ORDERED: *HR* Dextrose 50 % in Water (Syg) 50 ML SYRINGE IVP PRN (10:12)
[2018-11-22] MEDS ORDERED: Insulin Human Regular 100 UNIT in 0.9 % Sodium Chloride 100 ML IVC SCH (10:12)
[2018-11-22] MEDS ORDERED: *HR* FentaNYL (PF) 100 MCG/2 ML VIAL IVP PRN (10:12)
[2018-11-22] MEDS ORDERED: Ondansetron 4 MG/2 ML VIAL IVP PRN (10:12)
[2018-11-22] MEDS ORDERED: Dextrose Gel 15 GM/37.5 ML TUBE PO PRN ×2 (10:12)
[2018-11-22] MEDS ORDERED: D5% in Water 1,000 ML IVC PRN (10:12)
[2018-11-22] MEDS ORDERED: Acetaminophen 325 MG TABLET PO PRN (10:12)
[2018-11-22] MEDS ORDERED: Insulin Regular, Human 100 UNIT/ML IV PRN (10:12)
[2018-11-22] MEDS: *HR* Amiodarone 200 MG TABLET PO SCH (11:04)
[2018-11-22] MEDS: *HR* Heparin 5,000 UNIT/ML VIAL SQ SCH ×2 (11:06→19:40)
[2018-11-22] MEDS: Insulin LISPRO 300 UNITS/3 ML VIAL SQ SCH ×3 (11:07→20:44)
[2018-11-22] MEDS: Furosemide 20 MG/2 ML VIAL IVP SCH (16:46)
[2018-11-23] MEDS: *HR* OxyCODONE/APAP 5/325 TABLET PO PRN ×2 (05:52→20:40)
[2018-11-23] MEDS: Metoclopramide 10 MG/2 ML VIAL IVP SCH ×3 (05:53→17:00)
[2018-11-23] MEDS: Ketorolac 15 MG/ML VIAL IVP SCH ×3 (05:53→16:59)
[2018-11-23] MEDS: *HR* Heparin 5,000 UNIT/ML VIAL SQ SCH (05:53)
[2018-11-23] MEDS: Insulin LISPRO 300 UNITS/3 ML VIAL SQ SCH ×4 (08:14→20:42)
[2018-11-23] MEDS: Furosemide 20 MG/2 ML VIAL IVP SCH ×2 (08:15→17:00)
[2018-11-23] MEDS: Aspirin Enteric Coated 81 MG Tablet PO SCH (08:16)
[2018-11-23] MEDS: Chlorhexidine Rinse 15 ML MOUTHWASH MM SCH ×2 (08:16→20:41)
[2018-11-23] MEDS: *HR* Amiodarone 200 MG TABLET PO SCH (08:17)
[2018-11-23] MEDS ORDERED: Pantoprazole 40 MG VIAL IVP SCH (09:00)
--- NOTE | 2018-11-23 09:22 | Cardiothoracic Progress Note ---
Date of Encounter: 11/23/18 Time of Encounter: 09:20 - Assessment and plan (1) CAD (coronary artery disease) Current Visit: No Status: Acute The assessment and plan as outlined above was discussed with the patient and/or family members who expressed understanding and agreement. All questions were answered. The chest tubes and pacing wires were removed. We will check a stat portable chest x-ray. We will restart the patient on his home medications. Qualifiers: Coronary Disease-Associated Artery/Lesion type: [place] artery [place] vs. transplanted heart: [place] heart Associated angina: without angina Qualified Code(s): I25.10 - Atherosclerotic heart disease of [place] coronary artery without angina pectoris - Subjective Interval history: The patient complains of moderate postoperative pain. Vital Signs, Last 4 Hours Temp Pulse Resp BP Pulse Ox 11/23/18 08:07 98.2 F 91 16 169/107 92 11/23/18 07:31 14 92 Oxgyen Flow Rate Oxygen Flow Rate (LPM) 3 Clinical Data, last 8 Hours Output, Chest Tube Drainage 12 Amount [Mediastinal #1] Output, Chest Tube Drainage 0 Amount [Mediastinal #2] Output, Urine Amount 400 Output, Urine Amount 400 Weight 11/21/18 11/22/18 11/23/18 23:59 23:59 23:59 Weight 88.451 kg 89.9 kg 89.7 kg Lungs are clear to percussion and auscultation. Heart is in a normal sinus rhythm. All incisions are healing well without signs of infection and the sternum is stable. - Labs 11/22/18 03:00 11/22/18 03:00 - VTE Reasons for not Prescribing Prophylaxis: Treatment not Indicated - Low risk for VTE Documentation of Mechanical Device: Graduated compression elastic hosiery Consult Discharge Plan - Plan Referrals: Sushma Han, POLITICAL SCIENCE FACULTY MEMBER [Primary Care Provider] -
[2018-11-23] MEDS: Diltiazem CD (24hr) 180 MG CAPSULE PO SCH (11:42)
[2018-11-23] MEDS: Apixaban 5 MG TABLET PO SCH (20:41)
[2018-11-24] MEDS: Melatonin 3 MG TABLET PO PRN ×2 (00:03→21:11)
[2018-11-24] MEDS: Ketorolac 15 MG/ML VIAL IVP SCH ×4 (00:03→16:46)
[2018-11-24] MEDS: Metoclopramide 10 MG/2 ML VIAL IVP SCH ×3 (00:03→11:42)
[2018-11-24 00:31] LABS: Basophils % 0.1 %; Eosinophils % 0.1 %; Hematocrit 37.1 % (37.5-50.1); Hemoglobin 12.9 g/dL (12.9-16.9); Immature Granulocytes % 0.5 % (0-4); Lymphocytes # 2.1 K/mcL (0.6-4.6); Lymphocytes % 14.5 %; Mean Corpuscular HGB Conc 34.8 g/dL (31.6-35.5); Mean Corpuscular Volume 92.1 fL (83.0-100.0); Mean Platelet Volume 11.4 fL (9.4-12.4); Monocytes # 2.4 K/mcL (0.0-1.3); Monocytes % 16.1 %; Neutrophils # 10.1 K/mcL (1.6-8.9); Platelet Count 213 K/mcL (140-400); Red Blood Count 4.03 M/mcL (4.19-5.50); Red Cell Distribution Width 14.9 % (11.5-14.5); Segmented Neutrophils % 68.7 %
[2018-11-24 00:59] LABS: BUN/Creatinine Ratio 23 (6-26); Blood Urea Nitrogen 14 mg/dL (8-23); Calcium 8.8 mg/dL (8.6-10.3); Carbon Dioxide 29 mEq/L (23-29); Chloride 98 mEq/L (98-107); Glucose 131 mg/dL (70-105); Osmolality,Calculated 282 (280-300); Potassium 3.3 mEq/L (3.5-5.1); Sodium 135 mEq/L (136-145); eGFR For Non-African Americans > 60 (> 60)
[2018-11-24] MEDS: *HR* OxyCODONE/APAP 5/325 TABLET PO PRN ×3 (05:01→21:12)
--- NOTE | 2018-11-24 07:40 | Cardiothoracic Progress Note ---
Date of Encounter: 11/24/18 Time of Encounter: 07:37 - Assessment and plan (1) CAD (coronary artery disease) Current Visit: No Status: Acute We will start by mouth potassium for a potassium level of 3.3. We will ambulate the patient today and plan to discharge him tomorrow. Qualifiers: Coronary Disease-Associated Artery/Lesion type: [place] artery [place] vs. transplanted heart: [place] heart Associated angina: without angina Qualified Code(s): I25.10 - Atherosclerotic heart disease of [place] coronary artery without angina pectoris - Subjective Interval history: The patient is beginning to ambulate. His postoperative pain is markedly improved. He is anxious to go home. Vital Signs, Last 4 Hours Temp Pulse Resp BP Pulse Ox 11/24/18 04:39 97.9 F 74 18 153/91 93 11/24/18 04:14 16 96 Oxgyen Flow Rate Oxygen Flow Rate (LPM) 2 Clinical Data, last 8 Hours Output, Urine Amount 200 Output, Urine Amount 600 Output, Urine Amount 300 Output, Urine Amount 0 Output, Urine Amount 200 Weight 11/22/18 11/23/18 11/24/18 23:59 23:59 23:59 Weight 89.9 kg 89.7 kg 86.5 kg Lungs are clear to percussion and auscultation. Heart is in a normal sinus rhythm. All incisions are healing well without signs of infection and the st ernum is stable. - Labs 11/24/18 00:14 11/24/18 00:14 Lab Results, Last 24 hours 11/24/18 11/24/18 00:14 00:14 WBC 14.7 H Hgb 12.9 Hct 37.1 L Plt Count 213 Sodium 135 L Potassium 3.3 L Chloride 98 Carbon Dioxide 29 BUN 14 Creatinine 0.62 L Glucose 131 H Calcium 8.8 - VTE Reasons for not Prescribing Prophylaxis: Treatment not Indicated - Low risk for VTE Documentation of Mechanical Device: Graduated compression elastic hosiery Consult Discharge Plan - Plan Referrals: Susana Mcintosh MD [Partnered Physician] - 12/16/18 1:45 pm Antonio Broussard CNP [Advanced Practice Nurse] - (office to call patient at home with follow up appointment) Sushma Han CNP [Primary Care Provider] - 12/02/18 1:00 pm
[2018-11-24] MEDS: *HR* Amiodarone 200 MG TABLET PO SCH (08:12)
[2018-11-24] MEDS: Diltiazem CD (24hr) 180 MG CAPSULE PO SCH (08:12)
[2018-11-24] MEDS: Apixaban 5 MG TABLET PO SCH ×2 (08:12→21:11)
[2018-11-24] MEDS: Chlorhexidine Rinse 15 ML MOUTHWASH MM SCH ×2 (08:12→21:17)
[2018-11-24] MEDS: Aspirin Enteric Coated 81 MG Tablet PO SCH (08:12)
[2018-11-24] MEDS: Insulin LISPRO 300 UNITS/3 ML VIAL SQ SCH ×4 (08:16→21:17)
[2018-11-25] MEDS: Ketorolac 15 MG/ML VIAL IVP SCH ×3 (00:39→11:05)
[2018-11-25 04:55] LABS: Basophils % 0.1 %; Eosinophils # 0.1 K/mcL (0.0-0.6); Eosinophils % 0.6 %; Hematocrit 37.3 % (37.5-50.1); Hemoglobin 13.1 g/dL (12.9-16.9); Immature Granulocytes % 0.3 % (0-4); Lymphocytes # 2.5 K/mcL (0.6-4.6); Mean Corpuscular HGB Conc 35.1 g/dL (31.6-35.5); Mean Corpuscular Hemoglobin 31.9 pg (28.0-33.3); Mean Corpuscular Volume 90.8 fL (83.0-100.0); Mean Platelet Volume 10.8 fL (9.4-12.4); Monocytes # 2.1 K/mcL (0.0-1.3); Monocytes % 14.6 %; Neutrophils # 9.7 K/mcL (1.6-8.9); Platelet Count 256 K/mcL (140-400); Red Blood Count 4.11 M/mcL (4.19-5.50); Segmented Neutrophils % 67.4 %
[2018-11-25 05:13] LABS: BUN/Creatinine Ratio 23 (6-26); Blood Urea Nitrogen 12 mg/dL (8-23); Calcium 9.2 mg/dL (8.6-10.3); Carbon Dioxide 30 mEq/L (23-29); Chloride 101 mEq/L (98-107); Glucose 130 mg/dL (70-105); Osmolality,Calculated 288 (280-300); Potassium 3.3 mEq/L (3.5-5.1); Sodium 138 mEq/L (136-145); eGFR For Non-African Americans > 60 (> 60)
--- NOTE | 2018-11-25 07:42 | Discharge Summary ---
Orders not resulted at time of discharge: Pending orders 11/15/18 15:46 Red Blood Cells [BBK] Routine Date of Encounter: 11/25/18 Time of Encounter: 07:37 - Discharge Diagnosis (1) CAD (coronary artery disease) Priority: Primary Status: Acute Qualifiers: Coronary Disease-Associated Artery/Lesion type: [place] artery [place] vs. transplanted heart: [place] heart Associated angina: without angina Qualified Code(s): I25.10 - Atherosclerotic heart disease of [place] coronary artery without angina pectoris - Hospital Course Hospital course: Mr. Sanchez is a 73 year old male The patient is a 73-year-old gentleman with a history of hypercholesterolemia and atrial fibrillation. Cardiac catheterization revealed severe coronary artery disease and he was referred for surgery. On 11/21/2018, Dr. Mcintosh took the patient to the operating room for coronary artery bypass grafting 2, utilizing the left internal mammary artery. He also performed a modified Maze procedure and left atrial appendage stapling. On 11/22/2018, transfer orders were written. On 11/23/2018, the chest tubes and pacing wires were removed. The patient otherwise did well and was discharged on 11/25/2018. At that time, he was afebrile. Lungs were clear to percussion and auscultation. Heart was in a normal sinus rhythm. All incisions were healing well without signs of infection and the sternum was stable. Medications are on the med rec and include Eliquis in case he has recurrent atrial fibrillation. He was also on narcotics for pain. I did check the [place] automated Rx reporting system. He was given a one-week supply and he was postoperative. Appropriate precautions were given. He was to walk as much as possible, but to avoid heavy lifting for a total of 3 months after surgery. He was to avoid driving for 1 month. He was to follow-up and see Dr. Mcintosh in the office in 4 weeks as directed. He was to follow-up with his primary care doctor and logistics research engineer as directed. He was to call sooner for any difficulties. - Time Spent with Patient Total time spent providing and/or coordinating discharge services: - Discharge Medications Prescriptions: OxyCODONE/APAP 5/325 [Percocet 5/325 MG] 1 each PO Q4HR PRN 7 Days #20 tablet PRN Reason: Mild Pain Amiodarone [Cordarone] 200 mg PO DAILY #30 tablet Apixaban [Eliquis] 5 mg PO BID #60 tab.ds.pk Atorvastatin [Lipitor] 40 mg PO HS #30 tablet Carvedilol 12.5 mg PO BID #60 tablet Diltiazem CD (24hr) [Cardizem CD] 180 mg PO DAILY #30 cap.er.24h Home Medications: Amiodarone [Cordarone] 200 mg PO DAILY #30 tablet 11/24/18 [Rx] Apixaban [Eliquis] 5 mg PO BID #60 tab.ds.pk 11/24/18 [Rx] Aspirin Enteric Coated [Aspirin EC] 81 mg PO DAILY tablet. 11/24/18 [Rx] Atorvastatin [Lipitor] 40 mg PO HS #30 tablet 11/24/18 [Rx] Carvedilol 12.5 mg PO BID #60 tablet 11/24/18 [Rx] Diltiazem CD (24hr) [Cardizem CD] 180 mg PO DAILY #30 cap.er.24h 11/24/18 [Rx] OxyCODONE/APAP 5/325 [Percocet 5/325 MG] 1 each PO Q4HR PRN 7 Days #20 tablet 11/24/18 [Rx] Allergies/Adverse Reactions: Allergy/AdvReac Type Severity Reaction Status Date / Time hydroxyzine Allergy Itching Verified 11/21/18 07:59 Date of admission: 11/21/18 07:17 Primary care physician: Sushma Han CNP Consults: 11/21/18 11:21 Consult to Cardiac Rehabilitation-Phase1 [CONS] Routine Comment: Reason for Consult: Post open heart Call Completed: Yes Procedure(s) Performed: 11/21/2018. Coronary artery bypass grafting 2, utilizing the left internal mammary artery, modified Maze procedure and left atrial appendage stapling. Discharging clinician: Ray Rose Anticipated date of discharge: 11/25/18 Physical Examination Vital Signs, Last 4 Hours Temp Pulse Resp BP Pulse Ox 11/25/18 04:00 97.9 F 69 20 148/92 93 11/25/18 03:49 16 92 - Patient Status Disposition: Home, Self-Care Condition: Fair Functional capacity at discharge: independent ambulation Overall status at discharge: patient is progressing back to baseline - Discharge Instructions Follow Up With: Susana Mcintosh MD [Partnered Physician] - 12/16/18 1:45 pm Antonio Broussard ASSOCIATE LOAN OFFICER [Advanced Practice Nurse] - (office to call patient at home with follow up appointment) Sushma Han ASSOCIATE LOAN OFFICER [Primary Care Provider] - 12/02/18 1:00 pm [facility] Aspirin Cont/Prescribed at DC: Yes Beta Melissa Cont/Prescribed at DC: Yes Statin Cont/Prescribed at DC: Yes MARIANNE/ARB Cont/Prescribed at DC: Not indicated - VTE Reasons for not Prescribing Prophylaxis: Treatment not Indicated - Low risk for VTE Documentation of Mechanical Device: Graduated compression elastic hosiery
[2018-11-25] MEDS: Diltiazem CD (24hr) 180 MG CAPSULE PO SCH (08:41)
[2018-11-25] MEDS: Apixaban 5 MG TABLET PO SCH (08:41)
[2018-11-25] MEDS: Chlorhexidine Rinse 15 ML MOUTHWASH MM SCH (08:41)
[2018-11-25] MEDS: Aspirin Enteric Coated 81 MG Tablet PO SCH (08:41)
[2018-11-25] MEDS: *HR* Amiodarone 200 MG TABLET PO SCH (08:41)
[2018-11-25] MEDS: Insulin LISPRO 300 UNITS/3 ML VIAL SQ SCH ×2 (08:42→12:23)
[2018-11-25 11:45] VITALS: BP 133/7
== END 2018-11-25 13:52 | disposition home or self-care (01) | DRG 229 ==
LOC: SAMDAY 06:00 → ICNU 07:17 → 2NNU 11-22 19:22
PROVIDERS: ADMIT Thoracic Surgery (Cardiothoracic Vascular Surgery); ATTEND Thoracic Surgery (Cardiothoracic Vascular Surgery)